=== PATIENT | male | born 1985 | race African-American/Black ===

== ENCOUNTER 2019-01-25 20:23 | Inpatient (IN) | payer OTHER ==
[~2019-01-25] VITALS: Ht 190.5 cm; Wt 95.7 kg
--- NOTE | 2019-01-25 20:57 | NUR ---
BIBS FROM HOME TO ER BED 9. AAOX4. NO RESP DISTRESS NOTED, BREATHING EVEN AND UNLABORED. AMBULATORY. C/O MIS TERNAL CHEST PAIN RADIATING TO THE BACK AND L ARM W/ NUMBNESS WITH THE PT REPORTS THAT STARTED 30MIN PROJECT MANAGER FINANCE. PAIN IS 9/10 W/ SENSATION OF HEAVY RIPPING PAIN. PT REPORTS TAKING 3 NITRO GLYCERIN WITHOUT ANY RELIEF. PT REPORTS EXTENSIVE HEART CONDITIONS. PT ALSO REPORTS VOMMITING BRIGHT RED BLOOD X 3 EPISODE 1HR PROJECT MANAGER FINANCE. PT IS PLACED ON MONITOR. MD AT BEDSIDE FOR EVAL. AWAITING ORDERS
[2019-01-25] MEDS ORDERED: diphenhydrAMINE HCL 50 MG/ML VIAL ONE ×3 (21:18→23:57)
[2019-01-25] MEDS ORDERED: methylPREDNISolone SOD SUCC 125 MG/2ML VIAL ONE (21:18)
[2019-01-25 21:19] LABS: BASOPHILS # (AUTO) 0.1 /CMM (0.0-0.2); BASOPHILS % (AUTO) 0.9 % (0.0-2.0); EOSINOPHILS % (AUTO) 0.3 % (0.0-6.0); HEMATOCRIT 35 % (39-51); HEMOGLOBIN 11.4 g/dL (13.5-17.5); LYMPHOCYTES # (AUTO) 1.3 /CMM (0.8-4.8); LYMPHOCYTES % (AUTO) 21.7 % (20.0-44.0); MEAN CORPUSCULAR HGB CONC 32 g/dl (31.0-36.0); MEAN CORPUSCULAR VOLUME 90 fL (80-96); MONOCYTES # (AUTO) 0.7 /CMM (0.1-1.30); MONOCYTES % (AUTO) 11.5 % (2.0-12.0); NEUTROPHILS # (AUTO) 3.9 /CMM (1.8-8.9); NEUTROPHILS % (AUTO) 65.6 % (43.0-81.0); PLATELET COUNT (AUTO) 185 /CMM (150-450); RED BLOOD CELL COUNT(AUTO) 3.92 MIL/uL (4.5-6.0)
[2019-01-25] MEDS ORDERED: FAMOTIDINE/PF INJ 20 MG/2 ML VIAL IV ONE (21:19)
[2019-01-25] MEDS ORDERED: HYDROMORPHONE 1 MG/1 ML DISP.SYRIN ONE ×2 (21:19→22:39)
[2019-01-25] MEDS ORDERED: ONDANSETRON HCL/PF 4 MG/2 ML VIAL ONE (21:19)
[2019-01-25 21:27] LABS: CALCIUM, SERUM 9.4 mg/dL (8.5-10.1); CARBON DIOXIDE 31 mmol/L (21-32); CHLORIDE 105 mmol/L (98-107); CREATININE 0.7 mg/dL (0.6-1.3); GLUCOSE 69 mg/dL (74-106); POTASSIUM 3.5 mmol/L (3.5-5.1); SODIUM SERUM 144 mmol/L (136-145); UREA NITROGEN, BLOOD 13 mg/dL (7-18)
[2019-01-25] MEDS ORDERED: diphenhydrAMINE HCL 50 MG/ML VIAL IV ONE ×2 (21:30→23:00)
[2019-01-25] MEDS ORDERED: ONDANSETRON HCL/PF 4 MG/2 ML VIAL IVP ONE (21:30)
[2019-01-25] MEDS ORDERED: FAMOTIDINE/PF INJ 40 MG in IV D5W 50 ML IV ONE (21:30)
[2019-01-25] MEDS ORDERED: methylPREDNISolone SOD SUCC 125 MG/2ML VIAL IV ONE (21:30)
[2019-01-25] MEDS ORDERED: HYDROMORPHONE INJ 2 MG/ML DISP.SYRIN IV ONE (21:30)
[2019-01-25 21:33] LABS: ALANINE AMINOTRANSFERASE 20 U/L (12-78); ALBUMIN 3.7 g/dL (3.4-5.0); ALKALINE PHOSPHATASE 74 U/L (46-116); ASPARTATE AMINOTRANSFERASE 9 U/L (15-37); BILIRUBIN,DIRECT 0.1 mg/dL (0.0-0.2); BILIRUBIN,TOTAL 0.2 mg/dL (0.2-1.0); LIPASE 111 U/L (73-393); TOTAL PROTEIN, SERUM 6.2 g/dL (6.4-8.2)
[2019-01-25 21:44] LABS: D-DIMER 0.2 mg/L(FEU (0.17-0.50)
--- NOTE | 2019-01-25 22:02 | NUR ---
RADIOLOGY AT BEDSIDE
[2019-01-25] MEDS ORDERED: IOHEXOL-350 100 ML VIAL IV ONE (22:06)
[2019-01-25] MEDS ORDERED: CT SWABBABLE VALVE TRANS SET 1 EA INFUS.SET MC ONE (22:06)
[2019-01-25] MEDS ORDERED: IV NS 0.9% 250 ML IV ONE (22:07)
--- NOTE | 2019-01-25 22:32 | NUR ---
PT BACK FROM CT. BENADRYL 50MG IV X 1 GIVEN PER MD ORDER FOR POST CT W/ CONTRAST TO PREVENT REACTION. PT STILL COMPLAINING OF CHEST PAIN 07/30. MD MADE AWARE AND RECEIVED VERBAL ORDER TO GIVE DILAUDID 1MG IV X 1 DOSE. NOTED AND CARRIED OUT
[2019-01-25] MEDS ORDERED: HYDROMORPHONE INJ 0.5 MG/0.5 ML SYRINGE IV ONE (23:00)
--- NOTE | 2019-01-25 23:37 | NUR ---
CALLED [facility] FOR PANEL ADMISSION.
--- NOTE | 2019-01-25 23:44 | NUR ---
CALLED RN SUP FOR TELE BED
--- NOTE | 2019-01-25 23:55 | NUR ---
KELLIE AT BEDSIDE W/ PT. [PT COMPLAINED OF GEN BODY ITCHING. MD MADE AWARE. VERBAL ORDERS FOR BENADRYL 50MG IV X 1. NOTED AND CARRIED OUT
--- NOTE | 2019-01-26 00:01 | NUR ---
PT ASSIGNED TO [facility] 107
[2019-01-26] MEDS ORDERED: MAGNESIUM HYDROXIDE 30 ML UDC PO PRN (00:30)
[2019-01-26] MEDS ORDERED: MAG HYDROX/AL HYDROX/SIMETH 30 ML UDC PO PRN (00:30)
[2019-01-26] MEDS ORDERED: Z GUARD REMEDY 2 OZ OINT TP PRN (00:30)
[2019-01-26] MEDS ORDERED: TRAMADOL HCL 50 MG TABLET PO PRN (00:30)
[2019-01-26] MEDS ORDERED: ONDANSETRON HCL/PF 4 MG/2 ML VIAL IVP PRN (00:30)
[2019-01-26] MEDS ORDERED: ACETAMINOPHEN 325 MG TABLET PO PRN (00:30)
--- NOTE | 2019-01-26 00:43 | NUR ---
ASSIGNED TO [facility] 315-2
--- NOTE | 2019-01-26 00:59 | NUR ---
REPORT GIVEN TO DIANA BRYSON FOR JOSHUA.
[2019-01-26 01:05] VITALS: BP 138/79
--- NOTE | 2019-01-26 01:10 | NUR ---
PT TRANSPORTED TO UNIT ON [facility] W/ EMT AND RN AT BEDSIDE USING ACLS PROTOCOL. NAD NOTED DURING TRANSPORT.
[2019-01-26] MEDS: MORPHINE SULFATE INJ 2 MG/ML DISP.SYRIN IV PRN ×5 (01:23→22:47)
--- NOTE | 2019-01-26 01:25 | NUR ---
RN OPENING NOTES RECEIVED REPORT FROM ROLLER PRINT TENDER SANJAY. Pt ARRIVED TO THE FLOOR VIA ER [facility], WAS ABLE TO AMBULATE FROM GURNEY TO BED WITH STEADY GAIT. NO S/S OF ACUTE DISTRESS OR SOB NOTED. Pt IS A/OX4, VERBAL, ABLE TO MAKE NEEDS KNOWN. Pt ALREADY HAD IV ACCESS SALES AND MARKETING ENGINEER HERE IN ER. IV LOCATED ON YUVAL MIDLINE. ON TELE MONITOR; TELE READING SR 70. SAFETY MEASURES IN PLACE. BED LOW, LOCKED, HOB ELEVATED, SIDE RAILS UP, CALL LIGHT AND BEDSIDE TABLE WITHIN REACH. WILL CONTINUE TO MONITOR Pt's CONDITION AND SAFETY THROUGHOUT THE NIGHT.
[2019-01-26 02:00] VITALS: BP 138/79
[2019-01-26] MEDS ORDERED: ATOR10TA PO (02:01)
[2019-01-26] MEDS ORDERED: SOTA80TA PO (02:01)
[2019-01-26] MEDS ORDERED: ECON15CR13 TP (02:04)
[2019-01-26] MEDS ORDERED: CARV6.25 PO (02:04)
[2019-01-26] MEDS ORDERED: DIGO125T PO (02:04)
[2019-01-26] MEDS ORDERED: FERR-68 PO (02:11)
[2019-01-26] MEDS ORDERED: DULO60CA45 PO (02:11)
[2019-01-26] MEDS ORDERED: FERR325T6 PO (02:11)
[2019-01-26] MEDS ORDERED: FLUT1DIS IH (02:28)
[2019-01-26] MEDS ORDERED: DOCU-141 PO (02:28)
[2019-01-26] MEDS ORDERED: TRAM50TA PO (02:28)
[2019-01-26] MEDS ORDERED: APIX5TAB PO (02:28)
[2019-01-26] MEDS ORDERED: DIPH50CA4 PO (02:28)
[2019-01-26] MEDS ORDERED: PANT40TA2 PO (02:28)
[2019-01-26] MEDS ORDERED: NITR0.4T48 SL (02:28)
[2019-01-26] MEDS ORDERED: ONDA4TAB5 PO (02:28)
[2019-01-26] MEDS ORDERED: ASPI-1169 PO (02:28)
[2019-01-26] MEDS ORDERED: OXYC-128 PO (02:28)
[2019-01-26] MEDS ORDERED: FOLI20CA PO (02:28)
[2019-01-26] MEDS ORDERED: MONT10TA22 PO (02:33)
[2019-01-26] MEDS ORDERED: TIOT18CA3 INH (02:33)
[2019-01-26] MEDS ORDERED: ISOS60TA4 PO (02:33)
[2019-01-26] MEDS ORDERED: GABA-534 PO (02:33)
[2019-01-26] MEDS ORDERED: ZOLP10TA2 PO (02:33)
[2019-01-26] MEDS: diphenhydrAMINE HCL 25 MG CAPSULE PO PRN ×2 (02:57→23:04)
[2019-01-26] MEDS ORDERED: ZOLPIDEM TARTRATE 10 MG TABLET PO PRN (03:00)
[2019-01-26] MEDS: PANTOPRAZOLE 40 MG VIAL IV SCH ×2 (03:00→17:02)
[2019-01-26] MEDS ORDERED: diphenhydrAMINE HCL 50 MG CAPSULE PO PRN (03:00)
--- NOTE | 2019-01-26 06:55 | NUR ---
RN CLOSING NOTES NO SIGNIFICANT CHANGES IN Pt's CONDITION. ALL NEEDS MET AND ATTENDED TO. SAFETY MEASURES IN PLACE. Pt RESTING IN BED WITH EQUAL CHEST RISE AND FALL. NO S/S OF ACUTE DISTRESS OR SOB NOTED DURING THE NIGHT. WILL ENDORSE TO DAYSHIFT RN FOR Pt's JOSHUA.
[2019-01-26 08:00] VITALS: BP 124/77
--- NOTE | 2019-01-26 08:00 | NUR ---
MS RN NOTES-- PT WAS SEEN AND EXAMINED BY DR. MORENO, D/C TELE.
[2019-01-26] MEDS: CARVEDILOL 6.25 MG TABLET PO SCH ×2 (08:25→17:03)
[2019-01-26] MEDS: FOLIC ACID 1 MG TABLET PO SCH (08:25)
[2019-01-26] MEDS: GABAPENTIN 300 MG CAPSULE PO SCH ×3 (08:25→17:03)
[2019-01-26] MEDS: DOCUSATE SODIUM 100 MG CAPSULE PO SCH ×2 (08:25→17:03)
[2019-01-26] MEDS: FERROUS SULFATE (325 MG) 325 MG/TAB TABLET PO SCH ×3 (08:25→17:03)
[2019-01-26] MEDS: DIGOXIN 0.125 MG TABLET PO SCH (08:25)
[2019-01-26] MEDS ORDERED: TIOTROPIUM BROMIDE 6 CAP/BOX CAP.W.DEV IH SCH (09:00)
[2019-01-26] MEDS ORDERED: ISOSORBIDE MONONITRATE 60 MG TAB.SR.24H PO SCH (09:00)
[2019-01-26] MEDS ORDERED: PANTOPRAZOLE 40 MG TABLET.DR PO SCH (09:00)
[2019-01-26] MEDS: ISOSORBIDE MONONITRATE (30MG) 30 MG TAB.SR.24H PO SCH (10:57)
[2019-01-26 11:24] LABS: BASOPHILS % (AUTO) 0.4 % (0.0-2.0); EOSINOPHILS % (AUTO) 0.1 % (0.0-6.0); HEMATOCRIT 34 % (39-51); LYMPHOCYTES # (AUTO) 0.2 /CMM (0.8-4.8); LYMPHOCYTES % (AUTO) 5.4 % (20.0-44.0); MEAN CORPUSCULAR HGB CONC 33 g/dl (31.0-36.0); MEAN CORPUSCULAR VOLUME 89 fL (80-96); MONOCYTES # (AUTO) 0.1 /CMM (0.1-1.30); MONOCYTES % (AUTO) 2.4 % (2.0-12.0); NEUTROPHILS # (AUTO) 3.8 /CMM (1.8-8.9); NEUTROPHILS % (AUTO) 91.7 % (43.0-81.0); PLATELET COUNT (AUTO) 153 /CMM (150-450); RED BLOOD CELL COUNT(AUTO) 3.81 MIL/uL (4.5-6.0); WHITE BLOOD COUNT (AUTO) 4.1 K/uL (4.3-11.0)
[2019-01-26 11:27] LABS: CREATININE 0.7 mg/dL (0.6-1.3); POTASSIUM 4.5 mmol/L (3.5-5.1)
[2019-01-26] MEDS: SOTALOL HCL 80 MG TABLET PO SCH ×2 (12:16→17:00)
[2019-01-26] MEDS ORDERED: diphenhydrAMINE HCL 50 MG/ML VIAL IV ONE ×4 (13:30→18:00)
[2019-01-26] MEDS ORDERED: methylPREDNISolone SOD SUCC 125 MG/2ML VIAL IV ONE ×2 (13:30→17:30)
[2019-01-26] MEDS ORDERED: FAMOTIDINE/PF INJ 20 MG/2 ML VIAL IV ONE ×2 (13:30→17:30)
--- NOTE | 2019-01-26 13:30 | NUR ---
MS RN NOTES-- PT WAS SEEN AND EXAMINED BY ILYA Richter/ ORDERS CARRIED OUT.
--- NOTE | 2019-01-26 14:00 | NUR ---
MS RN NOTES-- NOTIFIED RADIOLOGY RE: [facility] FOR TIME D/T PT NEEDING TO BE PREMEDICATED. PER GAVINO IN RADIOLOGY, SHE WILL CALL FOR TIME.
[2019-01-26 15:58] VITALS: BP 111/66
[2019-01-26] MEDS: SUCRALFATE 1 G TABLET PO SCH ×2 (17:03→22:37)
--- NOTE | 2019-01-26 17:41 | NUR ---
MS RN NOTES-- UNABLE TO PULL OUT 1330 MEDICATIONS FROM [employer] FOR PRE-MED FOR [facility]. CALLED PHARMACY, SPOKE W/ MILTON, SHE WILL RESET THE MEDICATIONS TO 1730. CLEARED 1330 MEDS D/T 1730 ADMINISTRATION FOR BENADRYL, SOLU-MEDROL AND PEPCID. PER RADIOLOGY, THEY WILL P/U PT "SOON."
--- NOTE | 2019-01-26 17:55 | NUR ---
MS RN NOTES-- PER PT REQUEST, TO HAVE BENADRYL IV X1 AFTER [facility]. NOTIFIED ILYA BRIONES AND RECEIVED VERBAL ORDERS FOR BENADRYL 50MG IV X1 AFTER [facility]. ORDERS READ BACK AND VERIFIED.
--- NOTE | 2019-01-26 17:57 | NUR ---
MS ORTIZ NOTES-- PT P/U BY RADIOLOGY VIA W/C FOR [facility] IN STABLE CONDITION.
[2019-01-26] MEDS ORDERED: IV NS 0.9% 250 ML IV ONE (17:59)
[2019-01-26] MEDS ORDERED: CT SWABBABLE VALVE TRANS SET 1 EA INFUS.SET MC ONE (17:59)
[2019-01-26] MEDS ORDERED: IOHEXOL-350 100 ML VIAL IV ONE (17:59)
--- NOTE | 2019-01-26 18:40 | NUR ---
MS ORTIZ NOTES-- PT CAME BACK FROM RADIOLOGY FOR [facility] IN STABLE CONDITION VIA W/C.
--- NOTE | 2019-01-26 19:06 | NUR ---
MS RN END OF SUMMARY NOTES ALL DUE MEDS GIVEN, NEEDS MET AND RENDERED. PT REMAINS A/OX4, AFEBRILE. RESPIRATIONS ARE EVEN AND UNLABORED, NOT IN ANY ACUTE DISTRESS NOTED. PT DENIES ANY SOB, N/V. C/O GENERALIZED PAIN AND MEDICATED WITH MORPHINE 2MG. NOTED TO BE EFFECTIVE. PT IS AMBULATORY, CONTINENT W/ BOWEL AND BLADDER. PICC LINE TO YUVAL INTACT, NO INFILTRATION NOTED. DRESSING KEPT CLEAN AND DRY. RESUMED CLEAR LIQUID DIET. NO BM TODAY FOR STOOL OB. PT MADE AWARE STOOL NEEDS TO BE COLLECTED. SAFETY MEASURES ARE IN PLACE. CALL LIGHT IS LEFT WITHIN REACH. WILL ENDORSE TO NEXT SHIFT FOR CONTINUITY OF CARE.
--- NOTE | 2019-01-26 19:15 | NUR ---
MS/RN OPENING NOTES: RECEIVED PATIENT IN BED, AWAKE AND WATCHING ON IPAD. A/OX4, VERBALLY RESPONSIVE AND ABLE TO MAKE NEEDS KNOWN. PATIENT IS ABLE TO AMBULATE TO THE BATHROOM WITH STEADY GAIT. NO S/S OF ACUTE DISTRESS OR SOB NOTED. IV ACCESS LOCATED ON THE YUVAL PICCLINE. ON CLEAR LIQUID DIET. SAFETY MEASURES ARE IN PLACE. BED IS IN LOW, LOCKED POSITION WITH HOB ELEVATED, SIDE RAILS UP X2. CALL LIGHT AND BEDSIDE TABLE WITHIN EASY REACH. WILL CONTINUE TO MONITOR PATIENT ACCORDINGLY.
[2019-01-26] MEDS: IPRATROPIUM NEB FS 0.5 MG/2.5 ML AMPUL.NEB NEB SCH (19:30)
[2019-01-26 20:00] VITALS: BP 115/70
[2019-01-26 20:37] LABS: HEMOGLOBIN 11.4 g/dL (13.5-17.5)
[2019-01-26] MEDS: MONTELUKAST SODIUM (10MG) 10 MG TABLET PO SCH (22:37)
--- NOTE | 2019-01-26 22:47 | NUR ---
MS/ RN NOTES: PATIENT COMPLAINED OF GENERALIZED PAIN WITH PAIN SCALE OF 8. MORPHINE 2 MG IV Q4HR WAS GIVEN ORDERED. PATIENT IS IN A STABLE CONDITION, VITAL SIGNS WNL. WILL CONTINUE TO MONITOR PATIENT AND REASSESS PAIN LEVEL ACCORDINGLY.
--- NOTE | 2019-01-26 23:04 | NUR ---
MS/ RN NOTES: PATIENT COMPLAINED OF ITCHING AND DISCOMFORT. VS WNL, BENADRYL 25 MG PO Q6HR WAS GIVEN ORDERED. PATIENT IS STABLE. WILL CONTINUE TO MONITOR PATIENT ACCORDINGLY.
[2019-01-27 00:58] LABS: HEMATOCRIT 34 % (39-51); HEMOGLOBIN 11.2 g/dL (13.5-17.5); LYMPHOCYTES # (AUTO) 0.3 /CMM (0.8-4.8); LYMPHOCYTES % (AUTO) 4.6 % (20.0-44.0); MEAN CORPUSCULAR HGB CONC 33 g/dl (31.0-36.0); MEAN CORPUSCULAR VOLUME 87 fL (80-96); MONOCYTES # (AUTO) 0.2 /CMM (0.1-1.30); MONOCYTES % (AUTO) 2.8 % (2.0-12.0); NEUTROPHILS # (AUTO) 5.5 /CMM (1.8-8.9); NEUTROPHILS % (AUTO) 92.6 % (43.0-81.0); PLATELET COUNT (AUTO) 179 /CMM (150-450); RED BLOOD CELL COUNT(AUTO) 3.91 MIL/uL (4.5-6.0)
[2019-01-27] MEDS: IPRATROPIUM NEB FS 0.5 MG/2.5 ML AMPUL.NEB NEB SCH ×4 (01:30→19:29)
--- NOTE | 2019-01-27 01:30 | NUR ---
RT RT UNAWARE OF NEW RESPIRATORY ORDERS. PT WAS ASSESSED. NO SOB AND CLEAR BREATH SOUNDS.
[2019-01-27] MEDS: MORPHINE SULFATE INJ 2 MG/ML DISP.SYRIN IV PRN ×5 (02:58→22:49)
--- NOTE | 2019-01-27 02:58 | NUR ---
MS/ RN NOTES: PATIENT IS COMPLAINING OF GENERALIZED PAIN RADIATING TO THE BACK WITH PAIN SCALE OF 8. MORPHINE 2 MG IV Q4HR WAS GIVEN ORDERED. PATIENT IS IN A STABLE CONDITION, VITAL SIGNS WNL. WILL CONTINUE TO MONITOR PATIENT AND REASSESS PAIN LEVEL ACCORDINGLY.
--- NOTE | 2019-01-27 06:42 | NUR ---
MS/ RN CLOSING NOTES: NO SIGNIFICANT CHANGES IN PATIENT'S CONDITION. ALL NEEDS MET AND PROVIDED. KEPT PATIENT WARM AND DRY DURING THE NIGHT. ALL DUE MEDICATIONS GIVEN ORDERED. SAFETY MEASURES KEPT PLACE. Pt RESTING IN BED WITH EQUAL CHEST RISE AND FALL. NO S/S OF ACUTE DISTRESS OR SOB NOTED DURING THE NIGHT. WILL ENDORSE TO DAYSHIFT RN FOR JOSHUA.
[2019-01-27 08:00] VITALS: BP 113/72
--- NOTE | 2019-01-27 08:00 | NUR ---
MS RN OPENING NOTES Received Patient awake and resting in bed. A/O x 4. VS stable with no acute distress. Breathing even and unlabored on room air with no respiratory distress. No complaints of pain nor discomfort at this time. YUVAL PICC line clean, intact, patent and flushing well. Safety precautions in place. Bed locked and set to lowest position with side rails x 2 up. All needs rendered at this time. Call light within reach. Will continue to monitor.
[2019-01-27 08:14] LABS: BASOPHILS % (AUTO) 0.1 % (0.0-2.0); HEMATOCRIT 34 % (39-51); HEMOGLOBIN 11.2 g/dL (13.5-17.5); LYMPHOCYTES # (AUTO) 0.4 /CMM (0.8-4.8); LYMPHOCYTES % (AUTO) 7.9 % (20.0-44.0); MEAN CORPUSCULAR HGB CONC 33 g/dl (31.0-36.0); MEAN CORPUSCULAR VOLUME 88 fL (80-96); MONOCYTES # (AUTO) 0.2 /CMM (0.1-1.30); MONOCYTES % (AUTO) 4.4 % (2.0-12.0); NEUTROPHILS # (AUTO) 4.7 /CMM (1.8-8.9); NEUTROPHILS % (AUTO) 87.6 % (43.0-81.0); PLATELET COUNT (AUTO) 171 /CMM (150-450); WHITE BLOOD COUNT (AUTO) 5.4 K/uL (4.3-11.0)
[2019-01-27 08:27] LABS: CALCIUM, SERUM 8.7 mg/dL (8.5-10.1); CREATININE 0.6 mg/dL (0.6-1.3); MAGNESIUM 1.8 mg/dL (1.8-2.4); PHOSPHORUS 3.9 mg/dL (2.5-4.9)
[2019-01-27 08:36] LABS: THYROID STIMULATING HORMONE 0.069 uIU/mL (0.358-3.74)
[2019-01-27] MEDS ORDERED: ISOSORBIDE MONONITRATE (30MG) 30 MG TAB.SR.24H PO SCH (09:00)
[2019-01-27 09:08] LABS: IRON, SERUM 32 ug/dl (50-175); TOTAL IRON BINDING CAPACITY 291 ug/dl (250-450)
[2019-01-27 09:21] LABS: FERRITIN 121 ng/mL (8-388)
[2019-01-27] MEDS: PANTOPRAZOLE 40 MG VIAL IV SCH ×2 (10:17→18:28)
[2019-01-27] MEDS: SOTALOL HCL 80 MG TABLET PO SCH ×2 (10:22→18:29)
[2019-01-27] MEDS: SUCRALFATE 1 G TABLET PO SCH ×4 (10:22→21:17)
[2019-01-27] MEDS: DOCUSATE SODIUM 100 MG CAPSULE PO SCH ×2 (10:22→18:29)
[2019-01-27] MEDS: CARVEDILOL 6.25 MG TABLET PO SCH ×2 (10:23→18:29)
[2019-01-27] MEDS: FOLIC ACID 1 MG TABLET PO SCH (10:23)
[2019-01-27] MEDS: ISOSORBIDE MONONITRATE (30MG) 30 MG TAB.SR.24H PO SCH (10:23)
[2019-01-27] MEDS: FERROUS SULFATE (325 MG) 325 MG/TAB TABLET PO SCH ×3 (10:23→18:29)
[2019-01-27] MEDS: DIGOXIN 0.125 MG TABLET PO SCH (10:23)
[2019-01-27] MEDS: GABAPENTIN 300 MG CAPSULE PO SCH ×3 (10:24→18:30)
[2019-01-27] MEDS ORDERED: diphenhydrAMINE HCL 50 MG/ML VIAL IV ONE (14:00)
[2019-01-27 16:00] VITALS: BP 116/66
[2019-01-27 18:27] LABS: HEMOGLOBIN 11.6 g/dL (13.5-17.5)
--- NOTE | 2019-01-27 18:47 | NUR ---
MS RN CLOSING NOTES Patient awake and resting in bed. A/O x 4. VS stable with no acute distress. Breathing even and unlabored on room air with no respiratory distress. Patient stated back pain 10/30. Administered Morphine 2mg at 1825. Will endorse to oncoming shift. YUVAL PICC line clean, intact, patent and flushing well. Safety precautions in place. Bed locked and set to lowest position with side rails x 2 up. All needs rendered at this time. Call light within reach. Will endorse to oncoming shift.
[2019-01-27 20:38] VITALS: BP 106/56
[2019-01-27] MEDS: MONTELUKAST SODIUM (10MG) 10 MG TABLET PO SCH (21:17)
[2019-01-28] MEDS: IPRATROPIUM NEB FS 0.5 MG/2.5 ML AMPUL.NEB NEB SCH ×3 (01:30→13:29)
[2019-01-28] MEDS: MORPHINE SULFATE INJ 2 MG/ML DISP.SYRIN IV PRN ×4 (03:15→17:12)
--- NOTE | 2019-01-28 07:02 | NUR ---
RN CLOSING NOTES PATIENT ASLEEP, AROUSES EASILY, NO ACUTE DISTRESS NOTED. NO SIGNFICANT CHANGE OF CONDITION DURING THE SHIFT. REPOSITIONED FOR COMFORT. ALL NEEDS ATTENDED AND PROVIDED. ALL DUE MEDICATIONS GIVEN ORDERED. SAFETY PRECAUTIONS IN PLACE. BED IN LOWEST LOCKED POSITION. SIDERAILS UPX2, CALL LIGHT WITHIN EASY REACH.
[2019-01-28 08:00] VITALS: BP 104/55
--- NOTE | 2019-01-28 08:00 | NUR ---
MS RN OPENING NOTES Received Patient asleep and resting in bed. VS stable with no acute distress. Breathing even and unlabored on room air with no respiratory distress. No signs and symptoms of pain at this time. YUVAL PICC line clean, intact, patent and flushing well. Safety precautions in place. Bed locked and set to lowest position with side rails x 2 up. All needs rendered at this time. Call light within reach. Will continue to monitor.
[2019-01-28] MEDS: ISOSORBIDE MONONITRATE (30MG) 30 MG TAB.SR.24H PO SCH (09:00)
[2019-01-28] MEDS: CARVEDILOL 6.25 MG TABLET PO SCH ×2 (09:00→17:00)
[2019-01-28] MEDS: SUCRALFATE 1 G TABLET PO SCH ×3 (09:06→17:23)
[2019-01-28] MEDS: PANTOPRAZOLE 40 MG VIAL IV SCH ×2 (09:06→17:14)
[2019-01-28] MEDS: DIGOXIN 0.125 MG TABLET PO SCH (09:07)
[2019-01-28] MEDS: SOTALOL HCL 80 MG TABLET PO SCH ×2 (09:07→17:22)
[2019-01-28] MEDS: DOCUSATE SODIUM 100 MG CAPSULE PO SCH ×2 (09:07→17:22)
[2019-01-28] MEDS: FERROUS SULFATE (325 MG) 325 MG/TAB TABLET PO SCH ×3 (09:07→17:22)
[2019-01-28] MEDS: GABAPENTIN 300 MG CAPSULE PO SCH ×3 (09:08→17:22)
[2019-01-28] MEDS: FOLIC ACID 1 MG TABLET PO SCH (09:08)
[2019-01-28 10:13] LABS: BASOPHILS % (AUTO) 0.4 % (0.0-2.0); EOSINOPHILS % (AUTO) 0.5 % (0.0-6.0); HEMATOCRIT 38 % (39-51); HEMOGLOBIN 12.4 g/dL (13.5-17.5); LYMPHOCYTES # (AUTO) 1.3 /CMM (0.8-4.8); LYMPHOCYTES % (AUTO) 25.7 % (20.0-44.0); MEAN CORPUSCULAR HGB CONC 33 g/dl (31.0-36.0); MEAN CORPUSCULAR VOLUME 88 fL (80-96); MONOCYTES # (AUTO) 0.4 /CMM (0.1-1.30); MONOCYTES % (AUTO) 8.6 % (2.0-12.0); NEUTROPHILS # (AUTO) 3.4 /CMM (1.8-8.9); NEUTROPHILS % (AUTO) 64.8 % (43.0-81.0); PLATELET COUNT (AUTO) 168 /CMM (150-450); RED BLOOD CELL COUNT(AUTO) 4.27 MIL/uL (4.5-6.0); WHITE BLOOD COUNT (AUTO) 5.2 K/uL (4.3-11.0)
[2019-01-28 10:22] LABS: CALCIUM, SERUM 8.8 mg/dL (8.5-10.1); CREATININE 0.6 mg/dL (0.6-1.3); POTASSIUM 3.3 mmol/L (3.5-5.1)
[2019-01-28] MEDS ORDERED: SOD FERRIC GLUC 125 MG in IV NS 0.9% 100 ML IV SCH (14:00)
[2019-01-28 16:00] VITALS: BP 102/50
[2019-01-28 17:22] VITALS: BP 102/50
--- NOTE | 2019-01-28 19:04 | NUR ---
MS VP CORPORATE PARTNERSHIPS NOTES Patient discharged to home at this time. Patient in stable condition. VS stable with no acute distress. Breathing even and unlabored on room air with no respiratory distress. Denies pain. YUVAL Midline clean, intact, patent and flushing well. Patient admitted with Midline. Per Patient, primary MD, Marcelino Miles to schedule a procedure and placed YUVAL Midline. Per Ginger SOLIS, Patient to be discharged with Midline. Medication reconciliation and discharge orders reviewed and explained to Patient. Patient verbalized understanding. All belongings with Patient. Patient will follow up with PCP. Escorted Patient to the lobby for safety. Patient picked up by Zhane.
== END 2019-01-28 18:58 | disposition home or self-care (01) | DRG 241 ==
LOC: ER 20:30 → TELE1 01-26 00:03 → TELE 01-26 00:43 → MED 01-26 11:13
PROVIDERS: ADMIT Registered Nurse; ATTEND Nurse Practitioner Acute Care
DX: K25.4 Chronic or unspecified gastric ulcer with hemorrhage (principal); D68.59 Other primary thrombophilia; K55.21 Angiodysplasia of colon with hemorrhage; I27.20 Pulmonary hypertension, unspecified; I48.91 Unspecified atrial fibrillation; Q87.40 Marfan syndrome, unspecified; F41.9 Anxiety disorder, unspecified; D62 Acute posthemorrhagic anemia; I25.2 Old myocardial infarction; D63.1 Anemia in chronic kidney disease; D50.9 Iron deficiency anemia, unspecified; F32.9 Major depressive disorder, single episode, unspecified; G89.4 Chronic pain syndrome; J45.909 Unspecified asthma, uncomplicated; N18.9 Chronic kidney disease, unspecified; Z86.73 Personal history of transient ischemic attack (TIA), and cerebral infarction without residual deficits; Z86.718 Personal history of other venous thrombosis and embolism; Z86.711 Personal history of pulmonary embolism; Z87.11 Personal history of peptic ulcer disease; Z95.810 Presence of automatic (implantable) cardiac defibrillator; I12.9 Hypertensive chronic kidney disease with stage 1 through stage 4 chronic kidney disease, or unspecified chronic kidney disease; Z76.5 Malingerer [conscious simulation]; Z79.01 Long term (current) use of anticoagulants; Z79.82 Long term (current) use of aspirin; Z87.74 Personal history of (corrected) congenital malformations of heart and circulatory system
CPT/HCPCS: 36415; 71045-TC; 75574; 80048-TC; 80061-TC; 80076-TC; 82728-TC; 83540-TC; 83690-TC; 83735-TC; 84100-TC; 84443-TC; 84484-TC; 85025-TC; 85027-TC; 85378-TC; 85730-TC; 87081-TC; 93307-TC; C9113; G0378; J1170; J1200; J2270; J2405; J2916; J2930; J3490; J7030; J7050; J7060; Q0163; Q9967

== ENCOUNTER 2019-06-07 15:20 | Inpatient (IN) | payer OTHER ==
[~2019-06-07] VITALS: Ht 190.5 cm; Wt 101.2 kg
[~2019-06-07 15:20] MED LIST: APIX5TAB PO; ASPI-1169 PO; ATOR10TA PO; CARV6.25 PO; DIGO125T PO; DIPH50CA4 PO; DOCU-141 PO; DULO60CA45 PO; ECON15CR2 TP; FERR325T6 PO; FLUT1DIS IH; FOLI20CA PO; GABA-534 PO; ISOS60TA4 PO; MONT10TA22 PO; NITR0.4T48 SL; ONDA4TAB5 SL; OXYC-128 PO; PANT40TA2 PO; SOTA80TA PO; TIOT18CA3 INH; TRAM50TA PO; ZOLP10TA2 PO
--- NOTE | 2019-06-07 15:35 | NUR ---
LEFT SIDED WEAKNESS AND CHEST PAIN X 20 MINUTES. HX CVA. -FACIAL DROOP. -APHASIA. NO ACUTE DISTRESS NOTED. RR EVEN AND UNLABORED ON RA. PLACED ON MONITOR, SEEN BY DR ELLISON, AWAITING ORDERS.
--- NOTE | 2019-06-07 15:45 | NUR ---
TELENEUROLOGY VISIT WITH PT
[2019-06-07] MEDS ORDERED: IOHEXOL-350 100 ML VIAL IV ONE ×2 (15:46→15:50)
[2019-06-07] MEDS ORDERED: CT SWABBABLE VALVE TRANS SET 1 EA INFUS.SET MC ONE (15:46)
[2019-06-07] MEDS ORDERED: IV NS 0.9% 250 ML IV ONE (15:47)
--- NOTE | 2019-06-07 15:50 | NUR ---
PT TAKEN TO CT VIA [facility]
[2019-06-07] MEDS ORDERED: methylPREDNISolone SOD SUCC 125 MG/2ML VIAL ONE (15:53)
[2019-06-07] MEDS ORDERED: diphenhydrAMINE HCL 50 MG/ML VIAL ONE (15:53)
[2019-06-07] MEDS ORDERED: FAMOTIDINE/PF INJ 20 MG/2 ML VIAL IV ONE ×2 (15:55→16:00)
[2019-06-07 15:56] LABS: BASOPHILS # (AUTO) 0.1 /CMM (0.0-0.2); EOSINOPHILS % (AUTO) 0.6 % (0.0-6.0); HEMATOCRIT 37 % (39-51); HEMOGLOBIN 12.1 g/dL (13.5-17.5); LYMPHOCYTES # (AUTO) 0.8 /CMM (0.8-4.8); LYMPHOCYTES % (AUTO) 12.8 % (20.0-44.0); MEAN CORPUSCULAR HGB CONC 33 g/dl (31.0-36.0); MEAN CORPUSCULAR VOLUME 91 fL (80-96); MONOCYTES # (AUTO) 0.4 /CMM (0.1-1.30); NEUTROPHILS # (AUTO) 4.8 /CMM (1.8-8.9); NEUTROPHILS % (AUTO) 78.6 % (43.0-81.0); PLATELET COUNT (AUTO) 161 /CMM (150-450); WHITE BLOOD COUNT (AUTO) 6.1 K/uL (4.3-11.0)
[2019-06-07] MEDS ORDERED: diphenhydrAMINE HCL 50 MG/ML VIAL IV ONE (16:00)
[2019-06-07] MEDS ORDERED: ONDANSETRON HCL/PF 4 MG/2 ML VIAL IVP ONE (16:00)
[2019-06-07] MEDS ORDERED: methylPREDNISolone SOD SUCC 125 MG/2ML VIAL IV ONE (16:00)
[2019-06-07 16:03] LABS: CALCIUM, SERUM 8.7 mg/dL (8.5-10.1); CARBON DIOXIDE 32 mmol/L (21-32); CHLORIDE 105 mmol/L (98-107); CREATININE 0.7 mg/dL (0.6-1.3); GLUCOSE 90 mg/dL (74-106); SODIUM SERUM 142 mmol/L (136-145); UREA NITROGEN, BLOOD 8 mg/dL (7-18)
[2019-06-07 16:29] LABS: CHOLESTEROL 161 mg/dL (<200); HDL CHOLESTEROL 75 mg/dL (40-60); LDL 72 mg/dL (0-99); TRIGLYCERIDES 74 mg/dL (30-150)
[2019-06-07] MEDS ORDERED: FOLI0.4T2 PO (16:59)
[2019-06-07] MEDS ORDERED: ASPIRIN 325 MG TABLET PO STA (18:37)
[2019-06-07] MEDS ORDERED: ACETAMINOPHEN ES 500 MG TABLET PO PRN (19:00)
[2019-06-07] MEDS ORDERED: ASPIRIN 325 MG TABLET ONE (19:12)
[2019-06-07] MEDS ORDERED: ACETAMINOPHEN 325 MG TABLET ONE (19:12)
--- NOTE | 2019-06-07 20:23 | NUR ---
PT ASKING FOR PAIN MEDS. MD NOTIFIED.
[2019-06-07] MEDS ORDERED: HYDROCODONE/APAP 5/325MG 1 EACH TABLET PO STA (20:25)
[2019-06-07] MEDS ORDERED: HYDROCODONE/APAP 5/325MG 1 EACH TABLET ONE (20:29)
[2019-06-07] MEDS ORDERED: HYDROMORPHONE 1 MG/1 ML DISP.SYRIN IV STA (20:59)
[2019-06-07] MEDS ORDERED: HYDROMORPHONE 1 MG/1 ML DISP.SYRIN ONE (21:14)
--- NOTE | 2019-06-07 21:23 | NUR ---
REPORT GIVEN TO DIANA MARR FOR 315-2, NIRANJAN VELAZQUEZ ADMITTING.
[2019-06-07 21:30] VITALS: BP 146/58
--- NOTE | 2019-06-07 21:45 | NUR ---
[facility]
--- NOTE | 2019-06-07 22:00 | NUR ---
DESULPHURING OPERATOR NOTE: RECEIVED PATIENT FROM ER, NO ACUTE DISTRESS NOTED. BREATHING EVEN AND UNLABORED, NO SOB NOTED. IV TO RIGHT WRIST IN PLACE. ORIENTED PATIENT TO ROOM AND USE OF CALL LIGHT. AWAITING FOR ADMIT ORDERS. BED LOCKED AND IN LOWEST POSITION, CALL LIGHT IN REACH. WILL CONTINUE TO MONITOR.
[2019-06-08 00:01] VITALS: BP 112/76
[2019-06-08] MEDS ORDERED: diphenhydrAMINE HCL 25 MG CAPSULE PO PRN (01:30)
[2019-06-08] MEDS ORDERED: ACETAMINOPHEN 325 MG TABLET PO PRN (01:30)
[2019-06-08] MEDS ORDERED: ZOLPIDEM TARTRATE 10 MG TABLET PO PRN (01:30)
[2019-06-08] MEDS ORDERED: NITROGLYCERIN 0.4 MG/TAB BOTTLE SL PRN (01:30)
[2019-06-08] MEDS ORDERED: ONDANSETRON HCL/PF 4 MG/2 ML VIAL IVP PRN (01:30)
[2019-06-08] MEDS ORDERED: Z GUARD REMEDY 2 OZ OINT TP PRN (01:30)
[2019-06-08] MEDS ORDERED: HEPARIN SODIUM, PORCINE 5000 UNITS/1 ML VIAL IV ONE (03:00)
--- NOTE | 2019-06-08 03:00 | NUR ---
DIRECTOR OF DISTRICT OFFICE NOTE: PATIENT WITH ORDERS FOR HEPARIN DRIP FOR NO ACUTE CORONARY SYNDROMES. COMPLETED WEIGHT-BASED HEPARIN DOSING ORDER FOR NOT ACUTE CORONARY SYNDROMES AND FAXED TO [facility]. CLARIFIED BOLUS DOSE WITH MD, SINCE PATIENT HAD HX OF GIB, PATIENT TO ONLY RECEIVE HEPARIN 500OUNITS IV BOLUS. ORDER NOTED AND CARRIED OUT. FAXED ORDER FOR HEPARIN DRIP TO NURSING TANK TRUCK MILK RECEIVER. AWAITING BAG OF HEPARIN DRIP FROM TANK TRUCK MILK RECEIVER AND HEPARIN BOLUS TO BE VERIFIED FROM PHARMACY. WILL CONTINUE TO MONITOR.
[2019-06-08] MEDS ORDERED: HEPARIN INFUSION/D5W 500 ML IV ONE (03:36)
[2019-06-08] MEDS: HEPARIN INFUSION/D5W 500 ML IV PRN ×2 (03:56→20:13)
--- NOTE | 2019-06-08 04:05 | NUR ---
POOL CLEANER NOTE: PATIENT STARTED ON HEPARIN DRIP AT 1800 UNITS/KG (36ML/HR) PER PROTOCOL. HEPARIN BOLUS 5000 UNITS IV GIVEN PER MD ORDER. NEXT PTT ORDER TO TAKEN AT 1000. WILL CONTINUE TO MONITOR.
[2019-06-08] MEDS: diphenhydrAMINE HCL 50 MG/ML VIAL IV PRN ×2 (04:08→20:25)
[2019-06-08] MEDS ORDERED: oxyCODONE/APAP (5/325 MG) 1 UDTAB TABLET PO SCH (05:00)
--- NOTE | 2019-06-08 06:30 | NUR ---
BUSINESS CHANGE MANAGER NOTE: PATIENT RESTING IN BED, NO ACUTE DISTRESS NOTED. BREATHING EVEN AND UNLABORED, NO SOB NOTED. TELE READING SR 70. IV TO RIGHT WRIST IN PLACE, INFUSING HEPARIN 1800UNIT/KG IV. NO ACTIVE BLEEDING NOTED. BED LOCKED AND IN LOWEST POSITION, CALL LIGHT IN REACH. WILL ENDORSE TO DAY NURSE TO CONTINUE WITH PLAN OF CARE.
[2019-06-08 06:32] VITALS: BP 122/69
[2019-06-08] MEDS ORDERED: FLUTICASONE/SALMETEROL 1 DISK IH SCH (07:30)
[2019-06-08] MEDS ORDERED: IPRATROPIUM NEB FS 0.5 MG/2.5 ML AMPUL.NEB NEB SCH (07:35)
--- NOTE | 2019-06-08 07:47 | NUR ---
EVENT ATTENDANT OPENING NOTES RECEIVED PATIENT IN BED, ASLEEP. PATIENT ON ROOM AIR, BREATHING EVEN WITH NO SOB PRESENT AT THIS TIME. NO SIGNS OF PAIN SUCH FACIAL GRIMACING OR MOANING. TELE READING SR 70. IV TO RIGHT WRIST IN PLACE, INFUSING HEPARIN 1800UNIT/KG IV. NO ACTIVE BLEEDING NOTED. SAFETY PRECAUTIONS IN PLACE; BED IN LOW POSITION AND LOCKED, RAILS UP X2, CALL LIGHT WITHIN REACH. WILL CONTINUE TO MONITOR PATIENT.
[2019-06-08 08:00] VITALS: BP 115/67
[2019-06-08] MEDS: SOTALOL HCL 80 MG TABLET PO SCH ×2 (09:00→17:17)
[2019-06-08] MEDS ORDERED: DIGOXIN 0.125 MG TABLET PO SCH (09:00)
[2019-06-08] MEDS ORDERED: ISOSORBIDE MONONITRATE 60 MG TAB.SR.24H PO SCH (09:00)
[2019-06-08] MEDS ORDERED: ECONAZOLE NITRATE 15 GM TUBE TP SCH ×2 (09:00→17:00)
[2019-06-08 09:04] LABS: HEMATOCRIT 37 % (39-51); HEMOGLOBIN 12.2 g/dL (13.5-17.5); LYMPHOCYTES # (AUTO) 0.5 /CMM (0.8-4.8); LYMPHOCYTES % (AUTO) 6.1 % (20.0-44.0); MEAN CORPUSCULAR HGB CONC 34 g/dl (31.0-36.0); MEAN CORPUSCULAR VOLUME 89 fL (80-96); MONOCYTES # (AUTO) 0.1 /CMM (0.1-1.30); MONOCYTES % (AUTO) 1.2 % (2.0-12.0); NEUTROPHILS # (AUTO) 7.8 /CMM (1.8-8.9); NEUTROPHILS % (AUTO) 92.7 % (43.0-81.0); PLATELET COUNT (AUTO) 165 /CMM (150-450); RED BLOOD CELL COUNT(AUTO) 4.11 MIL/uL (4.5-6.0); WHITE BLOOD COUNT (AUTO) 8.4 K/uL (4.3-11.0)
[2019-06-08] MEDS: ASPIRIN 81 MG TAB.CHEW PO SCH (09:23)
[2019-06-08] MEDS: PANTOPRAZOLE 40 MG TABLET.DR PO SCH ×2 (09:24→17:16)
[2019-06-08] MEDS: DOCUSATE SODIUM 100 MG CAPSULE PO SCH ×2 (09:24→17:16)
[2019-06-08] MEDS: FERROUS SULFATE (325 MG) 325 MG/TAB TABLET PO SCH ×2 (09:24→17:16)
[2019-06-08] MEDS: DULOXETINE HCL 30 MG CAPSULE.DR PO SCH (09:24)
[2019-06-08] MEDS: FOLIC ACID 1 MG TABLET PO SCH (09:24)
[2019-06-08] MEDS: CARVEDILOL 6.25 MG TABLET PO SCH ×2 (09:25→17:17)
[2019-06-08] MEDS: GABAPENTIN 300 MG CAPSULE PO SCH ×3 (09:25→17:16)
[2019-06-08] MEDS: DIGOXIN 0.125 MG TABLET PO SCH (09:26)
[2019-06-08] MEDS: FLUTICASONE/VILANTEROL 1 EACH BLST.W.DEV IH SCH (09:29)
[2019-06-08 09:30] LABS: CALCIUM, SERUM 9.2 mg/dL (8.5-10.1); CREATININE 0.5 mg/dL (0.6-1.3); MAGNESIUM 1.9 mg/dL (1.8-2.4); PHOSPHORUS 2.3 mg/dL (2.5-4.9); POTASSIUM 4.1 mmol/L (3.5-5.1)
--- NOTE | 2019-06-08 11:35 | NUR ---
CYBER OPS PLANNER NOTES RECEIVED A CALL FROM LAB AT 1125 REGARDING PATIENT APTT VALUE OF 106.9 PER PROTOCOL HEPARIN DRIP STOPPED ATT 1130 FOR ONE HOUR, THEN WILL DECREASE INFUSION BY 300 UNITS; FROM 1800 TO 1500
--- NOTE | 2019-06-08 12:40 | NUR ---
NEON PUMPER NOTES RESTARTED HEPARIN DRIP. WILL CONTINUE TO MONITOR PATIENT.
[2019-06-08] MEDS ORDERED: K PHOS NEUTRAL 250 MG TABLET PO ONE (13:30)
[2019-06-08 16:00] VITALS: BP 123/59
--- NOTE | 2019-06-08 18:58 | NUR ---
TENT FINISHER CLOSING NOTES PATIENT IN BED, ASLEEP. PATIENT ON ROOM AIR, BREATHING EVEN WITH NO SOB PRESENT AT THIS TIME. NO SIGNS OF PAIN SUCH FACIAL GRIMACING OR MOANING. TELE READING SR 70. IV TO RIGHT WRIST IN PLACE, INFUSING HEPARIN AT 1500 UNIT/KG IV. NO ACTIVE BLEEDING NOTED. ALL NEEDS ATTENDED TO THROUGHOUT THE DAY. SAFETY PRECAUTIONS IN PLACE; BED IN LOW POSITION AND LOCKED, RAILS UP X2, CALL LIGHT WITHIN REACH. WILL ENDORSE TO DIRECTOR OF SCOUT WORK NURSE.
[2019-06-08 20:00] VITALS: BP 111/61
[2019-06-08] MEDS: oxyCODONE/APAP (5/325 MG) 1 UDTAB TABLET PO PRN (20:25)
[2019-06-08] MEDS ORDERED: HYDROMORPHONE INJ 0.5 MG/0.5 ML SYRINGE IV ONE (21:30)
[2019-06-08] MEDS ORDERED: ATORVASTATIN 10 MG TABLET PO SCH (22:00)
[2019-06-08] MEDS ORDERED: MONTELUKAST SODIUM (10MG) 10 MG TABLET PO SCH (22:00)
[2019-06-08] MEDS ORDERED: HYDROMORPHONE 1 MG/1 ML DISP.SYRIN IV ONE (22:00)
[2019-06-09] MEDS: oxyCODONE/APAP (5/325 MG) 1 UDTAB TABLET PO PRN ×2 (02:58→09:07)
[2019-06-09] MEDS: diphenhydrAMINE HCL 50 MG/ML VIAL IV PRN ×2 (04:43→12:49)
--- NOTE | 2019-06-09 06:25 | NUR ---
MS RN NOTES AWAKE & RESPONSIVE. NOT IN ANY DISTRESS. NO SOB NOTED. DENIES ANY PAIN OR DISCOMFORT AT THIS TIME. WITH HEPARIN DRIP INFUSING WELL. MONITORED ACCORDINGLY. CALL LIGHT WITHIN REACH. BED IN LOWEST POSITION. SR UP X 2 FOR SAFETY. WILL ENDORSE TO NEXT SHIFT.
--- NOTE | 2019-06-09 07:10 | NUR ---
MS RN NOTES RECEIVED PATIENT IN BED, ASLEEP. AROUSABLE TO VERBAL AND TACTILE STIMULI. HOB ELEVATED. NO SOB. DENIES ANY C/O RUBA NOR DISCOMFORT AT THIS TIME. ON HEPARIN DTIP @ 1500UNITS ML/HR (30ML/HR) TO LEFT FA IV ACCESS WITHOUT S/S OF COMPLICATIONS NOR S/S OF BLEEDING. BED IN LOWEST POSITION, LOCKED. BED ALARM ON. CALL LIGHT WITHIN REACH. ABLE TO VERBALIZE NEEDS.
[2019-06-09 08:00] VITALS: BP 119/63
[2019-06-09 08:03] LABS: ALBUMIN 3.3 g/dL (3.4-5.0); BILIRUBIN,TOTAL 0.4 mg/dL (0.2-1.0); CALCIUM, SERUM 8.5 mg/dL (8.5-10.1); CREATININE 0.8 mg/dL (0.6-1.3); MAGNESIUM 1.9 mg/dL (1.8-2.4); POTASSIUM 3.8 mmol/L (3.5-5.1)
[2019-06-09 08:09] LABS: THYROID STIMULATING HORMONE 0.633 uIU/mL (0.358-3.74)
[2019-06-09] MEDS ORDERED: ISOSORBIDE MONONITRATE (30MG) 30 MG TAB.SR.24H PO SCH (09:00)
[2019-06-09] MEDS: DIGOXIN 0.125 MG TABLET PO SCH (09:06)
[2019-06-09] MEDS: GABAPENTIN 300 MG CAPSULE PO SCH ×2 (09:06→12:49)
[2019-06-09] MEDS: ASPIRIN 81 MG TAB.CHEW PO SCH (09:06)
[2019-06-09] MEDS: FOLIC ACID 1 MG TABLET PO SCH (09:06)
[2019-06-09] MEDS: PANTOPRAZOLE 40 MG TABLET.DR PO SCH (09:06)
[2019-06-09] MEDS: FERROUS SULFATE (325 MG) 325 MG/TAB TABLET PO SCH (09:06)
[2019-06-09] MEDS: DULOXETINE HCL 30 MG CAPSULE.DR PO SCH (09:06)
[2019-06-09] MEDS: DOCUSATE SODIUM 100 MG CAPSULE PO SCH (09:06)
[2019-06-09] MEDS: CARVEDILOL 6.25 MG TABLET PO SCH (09:08)
[2019-06-09 09:11] VITALS: BP 119/63
[2019-06-09] MEDS: FLUTICASONE/VILANTEROL 1 EACH BLST.W.DEV IH SCH (09:11)
[2019-06-09] MEDS: SOTALOL HCL 80 MG TABLET PO SCH (09:11)
[2019-06-09] MEDS ORDERED: DABI150C PO (10:05)
[2019-06-09 10:12] LABS: FERRITIN 276 ng/mL (8-388)
[2019-06-09 10:21] LABS: C-REACTIVE PROTEIN < 0.2 mg/dL (0.0-0.9)
[2019-06-09 10:30] LABS: BASOPHILS % (AUTO) 0.3 % (0.0-2.0); EOSINOPHILS % (AUTO) 0.4 % (0.0-6.0); HEMATOCRIT 36 % (39-51); HEMOGLOBIN 11.6 g/dL (13.5-17.5); LYMPHOCYTES # (AUTO) 1.5 /CMM (0.8-4.8); LYMPHOCYTES % (AUTO) 26.1 % (20.0-44.0); MEAN CORPUSCULAR HGB CONC 32 g/dl (31.0-36.0); MEAN CORPUSCULAR VOLUME 91 fL (80-96); MONOCYTES # (AUTO) 0.6 /CMM (0.1-1.30); MONOCYTES % (AUTO) 11.1 % (2.0-12.0); NEUTROPHILS # (AUTO) 3.5 /CMM (1.8-8.9); NEUTROPHILS % (AUTO) 62.1 % (43.0-81.0); PLATELET COUNT (AUTO) 159 /CMM (150-450); RED BLOOD CELL COUNT(AUTO) 3.97 MIL/uL (4.5-6.0); WHITE BLOOD COUNT (AUTO) 5.7 K/uL (4.3-11.0)
[2019-06-09] MEDS ORDERED: HYDROMORPHONE 1 MG/1 ML DISP.SYRIN IV ONE (10:30)
[2019-06-09] MEDS ORDERED: DABIGATRAN ETEXILATE MESYLATE 150 MG CAPSULE PO SCH (10:30)
--- NOTE | 2019-06-09 15:30 | NUR ---
MS RN NOTES ALERT AND ORIENTED X4. NO S/S OF RESPIRATORY DISTRESS. DENIES ANY C/O PAIN NOR DISCOMFORT AT THIS TIME. AMBULATORY WITH STEADY GAIT. S/P HEPARIN DRIP WITHOUT S/S OF BLEEDING. DISCHARGE INSTRUCTIONS AND EDUCATION PROVIDED WITH DISCHARGE PACKET GIVEN TO PATIENT. PER PATIENT, ALREADY HAS AN APPOINTMENT SCHEDULED WITH PCP. IV ACCESS REMOVED WITH CATHETER TIP INTACT WITH GAUZE DRESSING APPLIED. ALL BELONGINGS ACCOUNTED FOR. PATIENT LEFT IN STABLE CONDITION VIA PRIVATE CAR. IN NO APPARENT DISTRESS.
== END 2019-06-09 15:00 | disposition home or self-care (01) | DRG 47 ==
LOC: ER 15:23 → MED 17:43 → TELE 21:43 → MED 06-08 13:37
PROVIDERS: ADMIT Internal Medicine; ATTEND Internal Medicine
DX: G45.9 Transient cerebral ischemic attack, unspecified (principal); F11.20 Opioid dependence, uncomplicated; Q87.40 Marfan syndrome, unspecified; G62.9 Polyneuropathy, unspecified; I48.91 Unspecified atrial fibrillation; D64.9 Anemia, unspecified; E78.5 Hyperlipidemia, unspecified; F32.9 Major depressive disorder, single episode, unspecified; G89.4 Chronic pain syndrome; I10 Essential (primary) hypertension; Z79.82 Long term (current) use of aspirin; Z79.899 Other long term (current) drug therapy; Z86.718 Personal history of other venous thrombosis and embolism; Z86.711 Personal history of pulmonary embolism; Z86.73 Personal history of transient ischemic attack (TIA), and cerebral infarction without residual deficits; Z90.49 Acquired absence of other specified parts of digestive tract; Z87.11 Personal history of peptic ulcer disease; Z95.810 Presence of automatic (implantable) cardiac defibrillator; J45.909 Unspecified asthma, uncomplicated; Z95.828 Presence of other vascular implants and grafts
CPT/HCPCS: 36415; 70450-TC; 70496-TC; 70498-TC; 71045-TC; 80048-TC; 80053-TC; 80061-TC; 82728-TC; 83540-TC; 83615-TC; 83735-TC; 84100-TC; 84443-TC; 84484-TC; 85025-TC; 85730-TC; 86140-TC; 87081-TC; 97116-TC; 97530-TC; 97535-TC; G0378; J1170; J1200; J1644; J2930; J3490; J7050; Q9967

== ENCOUNTER 2019-07-26 17:03 | Inpatient (IN) | payer OTHER ==
[~2019-07-26] VITALS: Ht 190.5 cm; Wt 115.7 kg
[~2019-07-26 17:03] MED LIST changes: -APIX5TAB PO; +DABI150C PO; +FOLI0.4T2 PO; -FOLI20CA PO
--- NOTE | 2019-07-26 17:25 | NUR ---
code stroke called
--- NOTE | 2019-07-26 17:25 | NUR ---
ACTIVATED CODE STROKE
--- NOTE | 2019-07-26 17:27 | NUR ---
PER PT LAST KNOWN WELL TIME 40 MINS AGO
--- NOTE | 2019-07-26 17:27 | NUR ---
PT BROUGHT TO CT
[2019-07-26] MEDS ORDERED: ONDANSETRON HCL/PF 4 MG/2 ML VIAL IV ONE (17:30)
[2019-07-26] MEDS ORDERED: MORPHINE SULFATE INJ 2 MG/ML DISP.SYRIN IV ONE ×2 (17:30→19:30)
[2019-07-26] MEDS ORDERED: IV NS 0.9% 500 ML BAG IV ONE (17:30)
[2019-07-26] MEDS ORDERED: methylPREDNISolone SOD SUCC 125 MG/2ML VIAL IV ONE (17:30)
[2019-07-26] MEDS ORDERED: FAMOTIDINE/PF INJ 20 MG/2 ML VIAL IV ONE ×2 (17:30→17:32)
[2019-07-26] MEDS ORDERED: diphenhydrAMINE HCL 50 MG/ML VIAL IV ONE ×2 (17:30→19:30)
[2019-07-26] MEDS ORDERED: CT SWABBABLE VALVE TRANS SET 1 EA INFUS.SET MC ONE (17:31)
[2019-07-26] MEDS ORDERED: IV NS 0.9% 250 ML IV ONE (17:31)
[2019-07-26] MEDS ORDERED: IOHEXOL-350 100 ML VIAL IV ONE ×2 (17:31→19:03)
[2019-07-26] MEDS ORDERED: methylPREDNISolone SOD SUCC 125 MG/2ML VIAL ONE (17:32)
[2019-07-26] MEDS ORDERED: MORPHINE SULFATE INJ 4 MG/ML DISP.SYRIN ONE ×2 (17:32→19:24)
[2019-07-26] MEDS ORDERED: diphenhydrAMINE HCL 50 MG/ML VIAL ONE ×2 (17:32→19:24)
[2019-07-26] MEDS ORDERED: ONDANSETRON HCL/PF 4 MG/2 ML VIAL ONE (17:32)
--- NOTE | 2019-07-26 17:40 | NUR ---
MEDICATED PER ERMD ORDER, PT ERIK WELL.
--- NOTE | 2019-07-26 17:50 | NUR ---
PT BROUGHT BACK FROM CT @ 174
[2019-07-26 17:54] LABS: BASOPHILS % (AUTO) 0.4 % (0.0-2.0); EOSINOPHILS % (AUTO) 0.7 % (0.0-6.0); HEMATOCRIT 32 % (39-51); HEMOGLOBIN 10.4 g/dL (13.5-17.5); LYMPHOCYTES # (AUTO) 0.6 /CMM (0.8-4.8); LYMPHOCYTES % (AUTO) 10.8 % (20.0-44.0); MEAN CORPUSCULAR HGB CONC 33 g/dl (31.0-36.0); MEAN CORPUSCULAR VOLUME 89 fL (80-96); MONOCYTES # (AUTO) 0.5 /CMM (0.1-1.30); MONOCYTES % (AUTO) 7.9 % (2.0-12.0); NEUTROPHILS # (AUTO) 4.6 /CMM (1.8-8.9); NEUTROPHILS % (AUTO) 80.2 % (43.0-81.0); PLATELET COUNT (AUTO) 151 /CMM (150-450); RED BLOOD CELL COUNT(AUTO) 3.57 MIL/uL (4.5-6.0); WHITE BLOOD COUNT (AUTO) 5.7 K/uL (4.3-11.0)
[2019-07-26 17:58] LABS: CALCIUM, SERUM 8.8 mg/dL (8.5-10.1); CARBON DIOXIDE 27 mmol/L (21-32); CHLORIDE 109 mmol/L (98-107); CREATININE 0.7 mg/dL (0.6-1.3); GLUCOSE 87 mg/dL (74-106); POTASSIUM 3.7 mmol/L (3.5-5.1); SODIUM SERUM 144 mmol/L (136-145); UREA NITROGEN, BLOOD 11 mg/dL (7-18)
--- NOTE | 2019-07-26 18:05 | NUR ---
PT SITTING UP COMFORTABLY. PT STS CP 06/29 & ERIK WELL. PT STILL C/O LT ARM & LT LEG NUMBNESS. PT ABLE TO ALL EXTREMITIESS, NO ARM/LEG DRIFTING. DENIES SOB, DIZZINESS, GONZALES, VISUAL CHANGES AT THIS TIME.
[2019-07-26] MEDS ORDERED: APIX5TAB PO (18:16)
--- NOTE | 2019-07-26 19:05 | NUR ---
PT TO CT VIA [facility].
[2019-07-26] MEDS ORDERED: LEVO75TA7 PO (19:07)
--- NOTE | 2019-07-26 19:31 | NUR ---
PT BACK FROM CT. MEDICATED PER ERMD ORDER. PT ERIK WELL.
--- NOTE | 2019-07-26 19:54 | NUR ---
CALLED [facility] FOR REPORT
[2019-07-26 20:08] LABS: CHOLESTEROL 132 mg/dL (<200); HDL CHOLESTEROL 65 mg/dL (40-60); LDL 51 mg/dL (0-99); TRIGLYCERIDES 56 mg/dL (30-150)
--- NOTE | 2019-07-26 20:30 | NUR ---
CALLED [facility] FOR REPORT. PER TECH, [facility] EXPERIENCING IT PROBLEMS AT THIS TIME. REQUESTED FOR RESULTS TO BE FAXED
--- NOTE | 2019-07-26 20:57 | NUR ---
CALLED [facility] REGARDING PENDING CTA. SPOKE WILLIS, SHE SPOKE TO RADIOLOGIST AND IS CURRENTLY READING SCAN AT THIS TIME.
[2019-07-26] MEDS ORDERED: ATORVASTATIN 40 MG TABLET PO STA (21:21)
[2019-07-26] MEDS ORDERED: ASPIRIN 81 MG TAB.CHEW PO STA (21:21)
--- NOTE | 2019-07-26 21:22 | NUR ---
DR. CHOUDHURY ON THE PHONE WITH DR. RICKS, RADILOGIST
--- NOTE | 2019-07-26 21:38 | NUR ---
DR. CHOUDHURY SPEAKING TO [facility] REGARDING [facility].
--- NOTE | 2019-07-26 21:46 | NUR ---
REPORT GIVEN TO DIANA BOWMAN FOR JOSHUA.
--- NOTE | 2019-07-26 21:50 | NUR ---
RN NOTES: RECEIVED CALL FROM ER, ENDORSEMENT GIVEN BY SUYAPA/RN/ER, N/A 33 Y.O, MALE, CAME IN WITH LEFT SIDED NUMBNESS AND WEAKNESS, AND LEFT SIDED CHEST PAIN, CODE STROKE WAS NEGATIVE, PATIENT HAS AICD ON THE LEFT CHEST WALL, HE IS ON ELIQUIZ, HE WAS RECENTLY DISCHARGE FROM [facility] IN AJ G#18,HE RECEIVED TOTAL OF MORPHINE 8MG,ZOFRAN, SOLU MEDROL, PEPCID, LIPITOR AND ASPIRIN FROM ER.MED RECON DONE, 98-99% ON RA, TELE PATIENT, CT HEAD, CT CHEST, CXR ALL NEGATIVE FOR ABNORMALITIES, FULL CODE.
[2019-07-26] MEDS: ATORVASTATIN 40 MG TABLET PO SCH (22:00)
[2019-07-26 22:10] VITALS: BP 140/57
--- NOTE | 2019-07-26 22:10 | NUR ---
RN NOTES: ARRIVED IN MS-3W VIA GURNEY ACCOMPANIED BY 2 ER STAFF ON FLIGHT RADIO OFFICER, ST-[id number],HE CLAIMED HE IS STILL HAVING ON AND OFF PAIN. ORIENTED TO UNIT AND STAFF,COOPERATIVE, AA/OX4 ANSWER ALL QUESTION ASKED, NO SLURRED SPEECH NOTED, ABLE TO MOVE RUE AND LUE WITHIN RANGE, SLIGHT WEAKNESS NOTED ON THE LEFT UPPER AND LOWER EXTREMITIES. EXPLAINED TO HIM WE NEED TO DO BODY ASSESSMENT HE AGREED: 1)MULTIPLE SKIN DISCOLORATION AND NEEDLE PRICK IN THE RUE, LUE 2)RASH ON THE ANTERIOR AND POSTERIOR PART OF THE CHEST 3) AICD-LEFT CHEST WALL 4) MULTIPLE SKIN DISCOLORATION AND HEALING SCABS ON RLE 5)MULTIPLE SKIN DISCOLORATION AND OLD SCAB IN LUE, PATIENT CLAIMED HE HAD A FALL 2-3 DAYS AGO AT HOME.
[2019-07-26 22:30] VITALS: BP 140/57
--- NOTE | 2019-07-26 23:15 | NUR ---
RN NOTES: PATIENT COMPLAINED OF ITCHINESS AND HE IS NOT RELIEVED FROM THE BENADRYL HE RECEIVED FROM ER, HE ASK FOR THE NEXT DOSE OF HIS BENADRYL IF IT CAN BE GIVEN NOW.GIVEN PER PATIENT REQUEST.
[2019-07-26] MEDS: diphenhydrAMINE HCL 50 MG/ML VIAL IV PRN (23:18)
[2019-07-26] MEDS: BLOOD SUGAR DIAGNOSTIC 1 EACH STRIP IN SCH (23:26)
--- NOTE | 2019-07-26 23:27 | NUR ---
RN NOTES: LIPITOR ALREADY GIVEN IN THE ER. TO START DOSE TOMORROW.
[2019-07-27] MEDS: BLOOD SUGAR DIAGNOSTIC 1 EACH STRIP IN SCH ×8 (00:38→21:29)
--- NOTE | 2019-07-27 00:50 | NUR ---
RN NOTES: -BLOOD SUGAR CHECKED FOR 2200 FGARVY=375. -BLOOD SUGAR CHECKED FOR 0000 RESULT-112. -NO SLIDING SCALE, WILL CONTINUE TO MONITOR FOR SIGN OF HYPER AND HYPOGLYCEMIA.
[2019-07-27] MEDS: MORPHINE SULFATE INJ 4 MG/ML DISP.SYRIN IV PRN ×5 (01:06→20:06)
--- NOTE | 2019-07-27 01:11 | NUR ---
RN NOTES: COMPLAINED OF GENERALIZED PAIN, HE RATE IT /10, BP CHECKED-136/58 RR-18 HR-105, REQUEST FOR HIS PRN PAIN MEDICATION, GIVEN, NON PHARMACOLOGIC INTERVENTION RENDERED.
[2019-07-27] MEDS ORDERED: FLUTICASONE/SALMETEROL 1 DISK IH SCH (01:30)
[2019-07-27] MEDS ORDERED: IPRATROPIUM NEB FS 0.5 MG/2.5 ML AMPUL.NEB NEB SCH (01:38)
--- NOTE | 2019-07-27 05:55 | NUR ---
RN NOTES: AFTER MORNING CARE DONE AND BLOOD TEST CONE, BLOOD SUGAR-115, COMPLAINED OF GENERALIZED PAIN AND REQUEST FOR HIS PAIN MEDICATION, EXPLAINED TO HIM WILL TRY SOME NON PHARMACOLOGIC INTERVENTION, BP-122/68, HE REALLY WANT HIS PAIN MEDICATION, KEPT RESTED AND GIVEN. ON CLOSE WATCH.SPO2-98% WITH O2 AT 1-2L/MIN VIA NC.
[2019-07-27 06:00] VITALS: BP 122/68
--- NOTE | 2019-07-27 07:20 | NUR ---
RN NOTES: HE LOOKS MORE RELAX NOW, TELE MONITOR CONTINUE, SINUS RHYTHM-64 WITH PAC,KEPT ON COMFORTABLE POSITION,NEEDS ATTENDED, ENDORSED FOR CONTINUITY OF CARE, TO NOTIFY PMD OF SWALLOW EVALUATION, TO VERIFY DIGOXIN ORDER AND TO NOTIFY SCORE.
--- NOTE | 2019-07-27 07:39 | NUR ---
RECEIVED REPORT FROM [facility] SHIFT NURSE. PT AWAKE IN BED, ALERT AND ORIENTED X4, ON 02 VIA NC 2L/MIN, SATURATING WELL, RESPIRATIONS EVEN AND UNLABORED, NO SIGNS OF RESPIRATORY DISTRESS NOTED. SINUS TACH ON MONITOR, HR IV SITE ON LEFT JUGULAR INTACT, PATENT, WITH SALINE LOCK IN PLACE. INTRODUCED SELF TO PT, DISCUSSED PLAN OF CARE. BED IN LOW POSITION, LOCKED, CALL LIGHT LIGHT WITHIN REACH.
[2019-07-27] MEDS: PANTOPRAZOLE 40 MG TABLET.DR PO SCH (07:44)
[2019-07-27] MEDS: diphenhydrAMINE HCL 50 MG CAPSULE PO PRN ×2 (07:44→20:06)
[2019-07-27] MEDS: LEVOTHYROXINE SODIUM 75 MCG TABLET PO SCH (07:44)
[2019-07-27] MEDS: diphenhydrAMINE HCL 50 MG/ML VIAL IV PRN ×2 (07:50→14:05)
[2019-07-27 08:00] VITALS: BP 129/84
[2019-07-27] MEDS: DOCUSATE SODIUM 100 MG CAPSULE PO SCH ×2 (08:09→16:49)
[2019-07-27] MEDS: CARVEDILOL 6.25 MG TABLET PO SCH ×2 (08:09→16:50)
[2019-07-27] MEDS: DULOXETINE HCL 30 MG CAPSULE.DR PO SCH (08:09)
[2019-07-27] MEDS: GABAPENTIN 300 MG CAPSULE PO SCH ×3 (08:09→16:49)
[2019-07-27] MEDS: ISOSORBIDE MONONITRATE (30MG) 30 MG TAB.SR.24H PO SCH (08:10)
[2019-07-27] MEDS: ASPIRIN EC 81 MG TABLET.DR PO SCH (08:11)
[2019-07-27] MEDS: APIXABAN 5 MG TABLET PO SCH ×2 (08:12→16:51)
[2019-07-27] MEDS ORDERED: ASPIRIN EC 325 MG TABLET.DR PO SCH (09:00)
[2019-07-27] MEDS ORDERED: DIGOXIN 0.125 MG TABLET PO SCH (09:00)
[2019-07-27] MEDS ORDERED: ISOSORBIDE MONONITRATE 60 MG TAB.SR.24H PO SCH (09:00)
[2019-07-27] MEDS: FLUTICASONE/VILANTEROL 1 EACH BLST.W.DEV IH SCH (09:45)
[2019-07-27] MEDS: SOTALOL HCL 80 MG TABLET PO SCH ×2 (09:45→16:52)
[2019-07-27 11:11] LABS: BASOPHILS % (AUTO) 0.9 % (0.0-2.0); HEMATOCRIT 31 % (39-51); HEMOGLOBIN 10.5 g/dL (13.5-17.5); LYMPHOCYTES # (AUTO) 0.6 /CMM (0.8-4.8); LYMPHOCYTES % (AUTO) 9.7 % (20.0-44.0); MEAN CORPUSCULAR HGB CONC 34 g/dl (31.0-36.0); MEAN CORPUSCULAR VOLUME 88 fL (80-96); MONOCYTES # (AUTO) 0.4 /CMM (0.1-1.30); MONOCYTES % (AUTO) 6.2 % (2.0-12.0); NEUTROPHILS # (AUTO) 4.9 /CMM (1.8-8.9); NEUTROPHILS % (AUTO) 83.2 % (43.0-81.0); PLATELET COUNT (AUTO) 172 /CMM (150-450); RED BLOOD CELL COUNT(AUTO) 3.58 MIL/uL (4.5-6.0); WHITE BLOOD COUNT (AUTO) 5.8 K/uL (4.3-11.0)
[2019-07-27 11:46] LABS: ALBUMIN 3.3 g/dL (3.4-5.0); BILIRUBIN,TOTAL 0.4 mg/dL (0.2-1.0); CALCIUM, SERUM 8.9 mg/dL (8.5-10.1); CREATININE 0.7 mg/dL (0.6-1.3); POTASSIUM 3.6 mmol/L (3.5-5.1); TOTAL PROTEIN, SERUM 5.8 g/dL (6.4-8.2)
[2019-07-27 16:00] VITALS: BP 113/58
[2019-07-27 16:38] LABS: THYROID STIMULATING HORMONE 0.084 uIU/mL (0.358-3.74)
[2019-07-27 20:00] VITALS: BP 114/74
[2019-07-27] MEDS: ATORVASTATIN 40 MG TABLET PO SCH (20:06)
[2019-07-27] MEDS: MONTELUKAST SODIUM (10MG) 10 MG TABLET PO SCH (21:28)
--- NOTE | 2019-07-27 21:53 | NUR ---
/FRANTZ/LIZETH AT INITIAL ROUNDING AT 1930, RECEIVED PATIENT ON BED AWAKE, ALERT, ORIENTED, USING I PAD, COMFORTABLE, NO C/O PAIN, NO DISTRESS NOTED, FALL RISK RELATED NO MILD WEAKNESS OF LEFT LEG, FALL PRECAUTIONS IN PLACE, ENCOURAGED TO ASK FOR HELP WHEN WANTS TO GET OUT OF BED, VERBALIZED UNDERSTANDING, CALL LIGHT IN REACH, WILL MONITOR.
[2019-07-28] MEDS: MORPHINE SULFATE INJ 4 MG/ML DISP.SYRIN IV PRN ×5 (00:45→21:29)
[2019-07-28] MEDS: BLOOD SUGAR DIAGNOSTIC 1 EACH STRIP IN SCH ×9 (06:00→23:03)
[2019-07-28 07:11] LABS: BASOPHILS % (AUTO) 0.4 % (0.0-2.0); HEMATOCRIT 32 % (39-51); HEMOGLOBIN 10.7 g/dL (13.5-17.5); LYMPHOCYTES # (AUTO) 1.1 /CMM (0.8-4.8); LYMPHOCYTES % (AUTO) 25.5 % (20.0-44.0); MEAN CORPUSCULAR HGB CONC 33 g/dl (31.0-36.0); MEAN CORPUSCULAR VOLUME 89 fL (80-96); MONOCYTES # (AUTO) 0.4 /CMM (0.1-1.30); MONOCYTES % (AUTO) 10.3 % (2.0-12.0); NEUTROPHILS # (AUTO) 2.6 /CMM (1.8-8.9); NEUTROPHILS % (AUTO) 62.8 % (43.0-81.0); PLATELET COUNT (AUTO) 155 /CMM (150-450); RED BLOOD CELL COUNT(AUTO) 3.61 MIL/uL (4.5-6.0); WHITE BLOOD COUNT (AUTO) 4.2 K/uL (4.3-11.0)
--- NOTE | 2019-07-28 07:30 | NUR ---
MS/TELE/RN PATIENT IS DOZING INTERMITTENTLY, COMFORTABLE, NO SIGNS OF DISTRESS NOTED, CALL LIGHT IN REACH, ALL NEEDS ATTENDED AT THIS TIME, ENDORSED TO DAY SHIFT NURSE.
[2019-07-28 07:31] LABS: ALBUMIN 3.2 g/dL (3.4-5.0); BILIRUBIN,TOTAL 0.3 mg/dL (0.2-1.0); CALCIUM, SERUM 8.3 mg/dL (8.5-10.1); CREATININE 0.6 mg/dL (0.6-1.3); MAGNESIUM 1.6 mg/dL (1.8-2.4); PHOSPHORUS 4.1 mg/dL (2.5-4.9); POTASSIUM 3.6 mmol/L (3.5-5.1); TOTAL PROTEIN, SERUM 5.7 g/dL (6.4-8.2)
[2019-07-28 08:00] VITALS: BP 120/70
[2019-07-28] MEDS: DOCUSATE SODIUM 100 MG CAPSULE PO SCH ×2 (08:21→16:23)
[2019-07-28] MEDS: LEVOTHYROXINE SODIUM 75 MCG TABLET PO SCH (08:21)
[2019-07-28] MEDS: GABAPENTIN 300 MG CAPSULE PO SCH ×3 (08:22→16:24)
[2019-07-28] MEDS: PANTOPRAZOLE 40 MG TABLET.DR PO SCH (08:22)
[2019-07-28] MEDS: DULOXETINE HCL 30 MG CAPSULE.DR PO SCH (08:22)
[2019-07-28] MEDS: ASPIRIN EC 81 MG TABLET.DR PO SCH (08:22)
[2019-07-28] MEDS: CARVEDILOL 6.25 MG TABLET PO SCH ×2 (08:23→16:28)
[2019-07-28] MEDS: ISOSORBIDE MONONITRATE (30MG) 30 MG TAB.SR.24H PO SCH (08:23)
[2019-07-28] MEDS: APIXABAN 5 MG TABLET PO SCH ×2 (08:27→16:28)
[2019-07-28] MEDS: FLUTICASONE/VILANTEROL 1 EACH BLST.W.DEV IH SCH (09:00)
[2019-07-28] MEDS: SOTALOL HCL 80 MG TABLET PO SCH ×2 (09:21→16:27)
[2019-07-28] MEDS: diphenhydrAMINE HCL 50 MG CAPSULE PO PRN (09:37)
[2019-07-28] MEDS: Magnesium 1GM/D5W 100ML PREMIX 100 ML IV SCH ×2 (10:38→12:12)
[2019-07-28] MEDS: diphenhydrAMINE HCL 50 MG/ML VIAL IV PRN ×2 (16:23→23:03)
--- NOTE | 2019-07-28 18:43 | NUR ---
PATIENT RESTING ON BED AWAKE, A/O X3 , WITH NO C/O PAIN, BREATHING UNLABORED AND EVEN ON ROOM AIR TOLERATING WELL, MILD WEAKNESS ON L ARM AND LEFT LEG REMAINS SAME ,PATIENT EVALUATED BY OT TODAY . FALL AND SAFETY PRECAUTIONS IMPLEMENTED. PATIENT USES CALL LIGHT FOR ASSISTANCE. WILL ENDORSE TO NEXT SHIFT FOR JOSHUA.
--- NOTE | 2019-07-28 19:30 | NUR ---
MS RN OPENING NOTE PATIENT IN BED. A/OX4. TOLERATING ROOM AIR. RESPIRATIONS ARE EVEN AND UNLABORED. NO S/S SOB NOTED. C/O PAIN, INFORMED WILL ADMINISTER PAIN MEDICATION SOON VITALS HAVE BEEN TAKEN AND MEDICATION ADMINISTRATION TIME AVAILABLE. IN NO APPARENT DISTRESS. IV ACCESS IN LEFT JUGULAR #18 PATENT AND SALINE LOCKED. BED IS LOW AND LOCKED,HOB ELEVATED IN SEMI FOWLERS, SIDE RIALS UP X2. CALL LIGHT WITHIN REACH. WILL CONTINUE TO MONITOR.
[2019-07-28 20:00] VITALS: BP 104/64
[2019-07-28] MEDS: MONTELUKAST SODIUM (10MG) 10 MG TABLET PO SCH (21:26)
[2019-07-28] MEDS: ATORVASTATIN 40 MG TABLET PO SCH (21:27)
--- NOTE | 2019-07-28 21:30 | NUR ---
ms salinas note administered prn morphine 6mg for pain 10/30 in back and chest. pain is heavy and sharp. bp 122/72 hr 93. will continue to monitor. Addendum: 07/28/19 at 2217 by JAYE LAWSON RN waste witnessed by dayami salinas. waste placed in rx destroyer.
--- NOTE | 2019-07-28 22:45 | NUR ---
ms rn note called office communication professor MD. Dr. alvarado, to inform him that patient NIH score changed from 1 to 2. change in patient is left arm drift. MD telephone orders: no new orders at this time. order read back noted and carried out. also informed at patient has 2 different orders for accucheck. ACHS and Q6HR. telephone order: continue accucheck Q6HR. order read back noted and carried out.
--- NOTE | 2019-07-28 23:09 | NUR ---
ms rn note administered Benadryl 50mg for itchiness. will continue to monitor.
[2019-07-29] MEDS: MORPHINE SULFATE INJ 4 MG/ML DISP.SYRIN IV PRN ×4 (02:21→18:34)
--- NOTE | 2019-07-29 02:21 | NUR ---
MS RN NOTE ADMINISTERED PRN MORPHINE 6MG FOR PAIN 10/30. GENERALIZED PAIN IN BACK AND CHEST, SHARP AND ACHING. BP 116/70 HR 88. WILL CONTINUE TO MONITOR. YUSEF ORTIZ WITNESSED WASTE. WASTE MEDICATION PLACED IN RX DESTROYER.
[2019-07-29] MEDS: BLOOD SUGAR DIAGNOSTIC 1 EACH STRIP IN SCH ×4 (06:04→18:22)
--- NOTE | 2019-07-29 07:09 | NUR ---
MS RN CLOSING NOTE PATIENT IN BED. A/OX4. TOLERATING ROOM AIR. RESPIRATIONS ARE EVEN AND UNLABORED. NO SOB NOTED. MANAGED PAIN WITH MORPHINE. NO DISTRESS. IV ACCESS MAINTAINED IN LEFT JUGULAR #18 PATENT AND SALINE LOCKED. BED REMAINS LOW AND LOCKED,HOB ELEVATED IN SEMI FOWLERS, SIDE RIALS UP X2. CALL LIGHT WITHIN REACH. WILL ENDORSE TO NEXT SHIFT.
[2019-07-29 08:00] VITALS: BP 113/75
[2019-07-29] MEDS: ISOSORBIDE MONONITRATE (30MG) 30 MG TAB.SR.24H PO SCH (08:21)
[2019-07-29] MEDS: GABAPENTIN 300 MG CAPSULE PO SCH ×3 (08:21→16:09)
[2019-07-29] MEDS: diphenhydrAMINE HCL 50 MG/ML VIAL IV PRN ×2 (08:21→16:09)
[2019-07-29] MEDS: DULOXETINE HCL 30 MG CAPSULE.DR PO SCH (08:21)
[2019-07-29] MEDS: PANTOPRAZOLE 40 MG TABLET.DR PO SCH (08:22)
[2019-07-29] MEDS: LEVOTHYROXINE SODIUM 75 MCG TABLET PO SCH (08:22)
[2019-07-29] MEDS: DOCUSATE SODIUM 100 MG CAPSULE PO SCH ×2 (08:23→16:09)
[2019-07-29] MEDS: ASPIRIN EC 81 MG TABLET.DR PO SCH (08:23)
[2019-07-29] MEDS: CARVEDILOL 6.25 MG TABLET PO SCH ×2 (08:24→16:19)
[2019-07-29] MEDS: APIXABAN 5 MG TABLET PO SCH ×2 (08:37→16:10)
[2019-07-29] MEDS: FLUTICASONE/VILANTEROL 1 EACH BLST.W.DEV IH SCH (09:07)
[2019-07-29] MEDS: SOTALOL HCL 80 MG TABLET PO SCH ×2 (09:23→16:18)
--- NOTE | 2019-07-29 14:46 | NUR ---
Social service consult requested by MD for possible stroke. Per MD notes, pt is a 33-year-old male with a past medical history of hypertension, hyperlipidemia, Marfan syndrome, previous ID, previous PE status post IVC filter on Pradaxa, pulmonary hypertension, CHF, previous cardiac arrhythmia with sick sinus syndrome status post AICD placement, multiple ER visits in the last month for chest pain, chronic pain syndrome with reported opioid dependence, hypothyroidism, recently discharged from [facility] for gastric ulcers with GI bleeding, presenting to the emergency department for chest pain and left-sided weakness. The patient reports that approximately 2 hours prior to arrival, the patient developed mid substernal moderate sharp pressure-like chest pain radiating to his back. He does not endorse diaphoresis. He does report feeling lightheaded at the time. Approximately 30 minutes prior to arrival, the patient developed left-sided arm and leg weakness and numbness. The patient is able to move his extremities, but they are weaker than the right. The patient endorses severe sensory loss on the left as well. MATERIALS ASSOCIATE conducted chart review and met with the pt bedside. MATERIALS ASSOCIATE introduced self, explained the role of the SW and purpose of the call. Pt is alert and oriented x 4. Pt is pleasant. Pt reports he resides in [place] and was visiting friends in [place]. Pt states, he has good family support. Pt's emergency contact is his brother Kobe . Pt reports to have a history of stroke. Last stroke was in 2007. Pt is independent with his ADLs and IADLS. Pt denies SI/HI and visual/auditory hallucinations. Pt has a history of Depression and is prescribed Zoloft. Pt is complaint with his psychotropic medication. MATERIALS ASSOCIATE completed the PhQ-9 screening and pt' scored a 0, requiring no psychiatric evaluation. Pt states he has a ride home back to [place]. MATERIALS ASSOCIATE provided active listening, emotional support, validation of feelings and positive coping skills. Pt was provided with a brief stroke education and materials. MATERIALS ASSOCIATE updated MS3 DANIELA Kalani with pt's discharge plan. Crm Coordinator is available for support as needed.
[2019-07-29 15:22] LABS: CALCIUM, SERUM 8.4 mg/dL (8.5-10.1); CREATININE 0.6 mg/dL (0.6-1.3); MAGNESIUM 1.7 mg/dL (1.8-2.4); PHOSPHORUS 3.4 mg/dL (2.5-4.9); POTASSIUM 3.6 mmol/L (3.5-5.1)
[2019-07-29 15:29] LABS: BASOPHILS % (AUTO) 0.6 % (0.0-2.0); EOSINOPHILS % (AUTO) 1.6 % (0.0-6.0); HEMATOCRIT 31 % (39-51); HEMOGLOBIN 10.2 g/dL (13.5-17.5); LYMPHOCYTES # (AUTO) 0.8 /CMM (0.8-4.8); MEAN CORPUSCULAR HGB CONC 33 g/dl (31.0-36.0); MEAN CORPUSCULAR VOLUME 92 fL (80-96); MONOCYTES # (AUTO) 0.3 /CMM (0.1-1.30); MONOCYTES % (AUTO) 8.9 % (2.0-12.0); NEUTROPHILS # (AUTO) 2.6 /CMM (1.8-8.9); NEUTROPHILS % (AUTO) 67.9 % (43.0-81.0); PLATELET COUNT (AUTO) 133 /CMM (150-450); RED BLOOD CELL COUNT(AUTO) 3.41 MIL/uL (4.5-6.0); WHITE BLOOD COUNT (AUTO) 3.8 K/uL (4.3-11.0)
[2019-07-29 16:00] VITALS: BP 114/66
--- NOTE | 2019-07-29 19:15 | NUR ---
M/S RN NOTES PATIENT AWAKE IN BED, NO RESPIRATORY DISTRESS, NO C/O PAIN AT THIS TIME. SKIN WARM TO TOUCH, IV ACCESS SITE INTACT AND PATENT. PATIENT'S NEEDS ATTENDED, BED ON LOWEST LOCKED POSITION, CALL LIGHT WITHIN REACH. WILL ENDORSE DISCHARGE INSTRUCTIONS TO ONCOMING NURSE.
--- NOTE | 2019-07-29 19:30 | NUR ---
MS RN OPENING NOTE PATIENT IN BED. A/OX4. TOLERATING ROOM AIR. RESPIRATIONS ARE EVEN AND UNLABORED. NO S/S SOB NOTED. IN NO APPARENT DISTRESS. IV ACCESS IN LEFT JUGULAR #18 PATENT AND SALINE LOCKED. BED IS LOW AND LOCKED,HOB ELEVATED IN SEMI FOWLERS, SIDE RIALS UP X2. CALL LIGHT WITHIN REACH. WILL CONTINUE TO MONITOR.
[2019-07-29 20:00] VITALS: BP 118/61
--- NOTE | 2019-07-29 20:50 | NUR ---
ms rn radiation oncology note patient is in stable condition. able to ambulate steady. id band removed, iv removed, exit care given, documents signed and copies given, belongings list gone through with patient, pictures completed within 24 hrs, no new changes. patient set up transportation. taken down with auto bumper straightener.
== END 2019-07-29 20:55 | disposition home or self-care (01) | DRG 45 ==
LOC: ER 17:06 → TELE 20:38 → MED 07-27 16:56
PROVIDERS: ADMIT Hospitalist; ATTEND Nurse Practitioner Acute Care
DX: I63.9 Cerebral infarction, unspecified (principal); D68.59 Other primary thrombophilia; I27.20 Pulmonary hypertension, unspecified; G81.94 Hemiplegia, unspecified affecting left nondominant side; I48.91 Unspecified atrial fibrillation; I49.5 Sick sinus syndrome; I50.9 Heart failure, unspecified; Q87.40 Marfan syndrome, unspecified; I25.2 Old myocardial infarction; Z95.810 Presence of automatic (implantable) cardiac defibrillator; J45.909 Unspecified asthma, uncomplicated; Z86.711 Personal history of pulmonary embolism; Z86.73 Personal history of transient ischemic attack (TIA), and cerebral infarction without residual deficits; Z86.718 Personal history of other venous thrombosis and embolism; D63.1 Anemia in chronic kidney disease; F32.9 Major depressive disorder, single episode, unspecified; E03.9 Hypothyroidism, unspecified; Q24.9 Congenital malformation of heart, unspecified; Z79.01 Long term (current) use of anticoagulants; R07.9 Chest pain, unspecified; Z95.828 Presence of other vascular implants and grafts
CPT/HCPCS: 36415; 70450-TC; 70496-TC; 70498-TC; 70551-TC; 71045-TC; 80048-TC; 80053-TC; 80061-TC; 80162-TC; 82962-TC; 83735-TC; 83880; 84100-TC; 84439-TC; 84443-TC; 84484-TC; 85025-TC; 85730-TC; 87081-TC; 92521; 92611-TC; 97110-TC; 97116-TC; 97530-TC; A4623; G0378; J1200; J2270; J2405; J2930; J3475; J3490; J7040; J7050; Q0163; Q9967

== ENCOUNTER 2019-09-13 18:36 | Inpatient (IN) | payer OTHER ==
[~2019-09-13] VITALS: Ht 190.5 cm; Wt 99.8 kg
[2019-09-13 10:20] VITALS: BP 118/77
[~2019-09-13 18:36] MED LIST changes: +APIX5TAB PO; -DABI150C PO; -ECON15CR2 TP; +LEVO75TA7 PO
--- NOTE | 2019-09-13 18:50 | NUR ---
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 TO ER BED 9, HOOKED TO [employer] CAR, VSS, CHANGED TO HOSP GOWN, WARM BLANKET PROVIDED, PATIENT AAO x 4, BREATHING EVEN AND UNLABORED. AWAITING MD UP
--- NOTE | 2019-09-13 18:56 | NUR ---
seen by dr da silva,code stroke called
[2019-09-13] MEDS ORDERED: methylPREDNISolone SOD SUCC 125 MG/2ML VIAL IV ONE (19:00)
[2019-09-13] MEDS ORDERED: diphenhydrAMINE HCL 50 MG/ML VIAL IV ONE (19:00)
[2019-09-13] MEDS ORDERED: FAMOTIDINE/PF INJ 20 MG/2 ML VIAL IV ONE ×2 (19:00→19:12)
--- NOTE | 2019-09-13 19:00 | NUR ---
REFER TO CODE STROKE BLUE SHEET
--- NOTE | 2019-09-13 19:00 | NUR ---
CODE STROKE ACTIVATED
[2019-09-13] MEDS ORDERED: CT SWABBABLE VALVE TRANS SET 1 EA INFUS.SET MC ONE (19:02)
[2019-09-13] MEDS ORDERED: IV NS 0.9% 250 ML IV ONE (19:02)
[2019-09-13] MEDS ORDERED: IOHEXOL-350 100 ML VIAL IV ONE (19:02)
[2019-09-13] MEDS ORDERED: methylPREDNISolone SOD SUCC 125 MG/2ML VIAL ONE (19:11)
[2019-09-13] MEDS ORDERED: diphenhydrAMINE HCL 50 MG/ML VIAL ONE (19:11)
[2019-09-13 19:21] LABS: BASOPHILS % (AUTO) 0.6 % (0.0-2.0); EOSINOPHILS % (AUTO) 0.5 % (0.0-6.0); HEMATOCRIT 34 % (39-51); LYMPHOCYTES # (AUTO) 0.7 /CMM (0.8-4.8); LYMPHOCYTES % (AUTO) 9.9 % (20.0-44.0); MEAN CORPUSCULAR HGB CONC 32 g/dl (31.0-36.0); MEAN CORPUSCULAR VOLUME 86 fL (80-96); MONOCYTES # (AUTO) 0.7 /CMM (0.1-1.30); MONOCYTES % (AUTO) 9.5 % (2.0-12.0); NEUTROPHILS # (AUTO) 5.9 /CMM (1.8-8.9); NEUTROPHILS % (AUTO) 79.5 % (43.0-81.0); PLATELET COUNT (AUTO) 175 /CMM (150-450); RED BLOOD CELL COUNT(AUTO) 3.98 MIL/uL (4.5-6.0); WHITE BLOOD COUNT (AUTO) 7.5 K/uL (4.3-11.0)
--- NOTE | 2019-09-13 19:29 | NUR ---
PT RETURN FROM CT.
--- NOTE | 2019-09-13 19:30 | NUR ---
TELE NEURO SPEAKING WITH PATIENT
[2019-09-13 19:31] LABS: CALCIUM, SERUM 8.6 mg/dL (8.5-10.1); CARBON DIOXIDE 30 mmol/L (21-32); CHLORIDE 106 mmol/L (98-107); CREATININE 0.7 mg/dL (0.6-1.3); GLUCOSE 77 mg/dL (74-106); POTASSIUM 3.5 mmol/L (3.5-5.1); SODIUM SERUM 142 mmol/L (136-145); UREA NITROGEN, BLOOD 8 mg/dL (7-18)
--- NOTE | 2019-09-13 19:31 | NUR ---
REPORT GIVEN TO JCARLOS ORTIZ FOR JOSHUA
[2019-09-13 19:42] LABS: ALANINE AMINOTRANSFERASE 20 U/L (12-78); ALBUMIN 3.6 g/dL (3.4-5.0); ALKALINE PHOSPHATASE 72 U/L (46-116); ASPARTATE AMINOTRANSFERASE 12 U/L (15-37); BILIRUBIN,DIRECT 0.2 mg/dL (0.0-0.2); BILIRUBIN,TOTAL 0.5 mg/dL (0.2-1.0); TOTAL PROTEIN, SERUM 6.2 g/dL (6.4-8.2)
--- NOTE | 2019-09-13 20:38 | NUR ---
COVID RAPID SWAB DELIVERED TO MAIN LAB IN PERSON, SIGNED LOG SHEET
[2019-09-13] MEDS ORDERED: NITROGLYCERIN 0.4 MG/TAB BOTTLE SL PRN (21:30)
[2019-09-13] MEDS ORDERED: ACETAMINOPHEN 325 MG TABLET PO PRN (21:30)
[2019-09-13] MEDS ORDERED: FLUTICASONE/SALMETEROL 1 DISK IH SCH (21:30)
[2019-09-13] MEDS ORDERED: ONDANSETRON HCL/PF 4 MG/2 ML VIAL IVP PRN (21:30)
[2019-09-13] MEDS ORDERED: Z GUARD REMEDY 2 OZ OINT TP PRN (21:30)
--- NOTE | 2019-09-13 21:50 | NUR ---
report given to sandeep salinas for brisa pt will be transported to 3rd floor once covid swab result back
[2019-09-13] MEDS ORDERED: TRAMADOL HCL 50 MG TABLET PO PRN (22:00)
[2019-09-13 22:07] LABS: ALBUMIN 3.6 g/dL (3.4-5.0); BILIRUBIN,TOTAL 0.5 mg/dL (0.2-1.0); CALCIUM, SERUM 8.7 mg/dL (8.5-10.1); CREATININE 0.7 mg/dL (0.6-1.3); POTASSIUM 3.6 mmol/L (3.5-5.1); TOTAL PROTEIN, SERUM 6.1 g/dL (6.4-8.2)
--- NOTE | 2019-09-13 22:08 | NUR ---
given to claude salinas
[2019-09-13 22:09] LABS: THYROID STIMULATING HORMONE 0.056 uIU/mL (0.358-3.74)
--- NOTE | 2019-09-13 22:34 | NUR ---
PT TRANSPORTED TO 3RD FLOOR
[2019-09-13 22:35] VITALS: BP 118/77
--- NOTE | 2019-09-13 22:35 | NUR ---
RN NOTES: -AT 2208 RECEIVED REPORT FROM MARITA/RN/ER,PATIENT CAME IN WITH C/O LEFT SIDED WEAKNESS, ON THE LEFT ARM AND LEFT LEG WEAKNESS 30 MIN PRIOR TO ARRIVAL, AND HE ALSO HAVE CHEST PAIN.HIS LABS WAS OK NO INFECTION, TROPONIN WAS NEGATIVE AND COVID IS NEGATIVE, HE HAS ICD ON DERRICK, IV ON THE LEFT AJ G#18, PATENT.LAST ADMISSION JULY 2019,CT BRAIN W/O CONTRAST-NO ACUTE INTRACRANIAL HEMORRHAGE. -AT 2234 PATIENT ARRIVED IN HI-3W, ROOM 326-2, A/OX4, ORIENTED TO UNIT AND STAFF, SPO2-97% ON ROOM AIR, NON LABORED BREATHING, NO SOB, CLEAR BREATH SOUND, NO COUGHING NOTED, AFEBRILE. CONVERSANT, ABLE TO GIVE DETAILED AND DISCUSS REGARDING HIS PAST MEDICAL HISTORY AND PAST SURGERY HE UNDERGONE, ON TELE MONITOR SR RATE-80. AGREED FOR SKIN ASSESSMENT: 1)BLUISH/BLACK DISCOLORATION ON THE LEFT BIG TOE 2) RLE-SKIN DISCOLORATION 3)YUVAL SKIN DISCOLORATION 4) SAMIR SKIN DISCOLORATION 5) RED RASHES ON THE BACK 6)LEFT UPPER CHEST-AICD 7) LEFT AJ G#18
--- NOTE | 2019-09-13 23:30 | NUR ---
RN NOTES: -SWALLOW EVALUATION DONE PRIOR TO GIVING OF MEDICATION, PATIENT WAS ABLE TO SWALLOW THIN LIQUID WELL WITHOUT ANY DIFFICULTY, NO DROOLING , GAG IS PRESENT, NO SLURRING OF SPEECH AND NO FACIAL DEVIATION NOTED. -HE VERBALIZED HE HAS NO DIFFICULTY IN SWALLOWING. -DUE ORAL MDS GIVEN ORDERED,BALANCE WHEEL SCREW HOLE DRILLER AWARE.
[2019-09-13] MEDS: ATORVASTATIN 10 MG TABLET PO SCH (23:32)
[2019-09-13] MEDS: FERROUS SULFATE (325 MG) 325 MG/TAB TABLET PO SCH (23:32)
[2019-09-13] MEDS: PANTOPRAZOLE 40 MG TABLET.DR PO SCH (23:32)
[2019-09-13] MEDS: ASPIRIN 81 MG TAB.CHEW PO SCH (23:32)
[2019-09-13] MEDS: GABAPENTIN 300 MG CAPSULE PO SCH (23:32)
[2019-09-13] MEDS: MONTELUKAST SODIUM (10MG) 10 MG TABLET PO SCH (23:32)
[2019-09-13] MEDS: BLOOD SUGAR DIAGNOSTIC 1 EACH STRIP IN SCH (23:43)
[2019-09-13] MEDS ORDERED: SOTALOL HCL 80 MG TABLET ONE (23:52)
[2019-09-14] VITALS: BP 139/86
[2019-09-14] MEDS: SOTALOL HCL 80 MG TABLET PO SCH ×3 (00:01→17:49)
--- NOTE | 2019-09-14 00:01 | NUR ---
RN NOTES: SOTALOL FIRST DOSE GIVEN UPON DELIVERY BY ANTHROPOLOGICAL LINGUIST, ADV NOT AVAILABLE IN [facility] OFFICE, LICENSED LAND SURVEYOR DR. PURDY AWARE, OK TO START FIRST DOSE IN THE MORNING UPON AVAILABILITY OF TH MEDICINE.
--- NOTE | 2019-09-14 00:21 | NUR ---
RN NOTES: -HE REFUSED FOR 0000 BLOOD SUGAR CHECK. HE VERBALIZED "MY SUGAR IS OK" RN EXPLAINED TO HIM THAT WE NEED TO MONITOR, HE AGREED TO CHECK IT IN THE MORNING. -BLOOD SUGAR CHECKED AT 2343 RESULT-112, GIVEN SNACKS PER PATIENT REQUEST, WILL CONTINUE TO MONITOR FOR ANY SIGN OF HYPER/HYPOGLYCEMIA.
[2019-09-14 04:00] VITALS: BP_SYST 102; BP_DIAS 52; BP_DIAS 57
--- NOTE | 2019-09-14 04:05 | NUR ---
RN NOTES: ABLE TO SLEEP AND REST, KEPT CALL LIGHT WITHIN EASY REACH, ON CLOSE VISUAL CHECK Q 2HOURLY.
[2019-09-14] MEDS: BLOOD SUGAR DIAGNOSTIC 1 EACH STRIP IN SCH ×9 (06:05→23:04)
[2019-09-14 07:31] LABS: HEMATOCRIT 35 % (39-51); HEMOGLOBIN 11.2 g/dL (13.5-17.5); LYMPHOCYTES # (AUTO) 0.3 /CMM (0.8-4.8); LYMPHOCYTES % (AUTO) 7.3 % (20.0-44.0); MEAN CORPUSCULAR HGB CONC 32 g/dl (31.0-36.0); MEAN CORPUSCULAR VOLUME 85 fL (80-96); MONOCYTES # (AUTO) 0.1 /CMM (0.1-1.30); MONOCYTES % (AUTO) 2.2 % (2.0-12.0); NEUTROPHILS # (AUTO) 4.1 /CMM (1.8-8.9); NEUTROPHILS % (AUTO) 90.5 % (43.0-81.0); PLATELET COUNT (AUTO) 175 /CMM (150-450); RED BLOOD CELL COUNT(AUTO) 4.12 MIL/uL (4.5-6.0); WHITE BLOOD COUNT (AUTO) 4.5 K/uL (4.3-11.0)
[2019-09-14] MEDS: IPRATROPIUM NEB FS 0.5 MG/2.5 ML AMPUL.NEB NEB SCH ×3 (07:35→19:30)
--- NOTE | 2019-09-14 07:57 | NUR ---
RN NOTES: ASLEEP IN THE NIGHT, NO COMPLAINTS OF PAIN OR DISCOMFORT, KEEP ON CLOSE WATCH, LATEST SUGAR-124, FOR ST, PT AND OT EVAL, TO F/U WITH NEURO, VASCULAR AND SW CONSULT, ENDORSED FOR CONTINUITY OF CARE.
[2019-09-14 08:00] VITALS: BP 93/53
[2019-09-14 08:55] LABS: CALCIUM, SERUM 8.8 mg/dL (8.5-10.1); CREATININE 0.5 mg/dL (0.6-1.3); MAGNESIUM 1.8 mg/dL (1.8-2.4); PHOSPHORUS 2.5 mg/dL (2.5-4.9); POTASSIUM 3.9 mmol/L (3.5-5.1)
[2019-09-14] MEDS: ASPIRIN 81 MG TAB.CHEW PO SCH ×2 (09:00→09:56)
[2019-09-14] MEDS ORDERED: TIOTROPIUM BROMIDE 6 CAP/BOX CAP.W.DEV IH SCH (09:00)
[2019-09-14] MEDS ORDERED: ISOSORBIDE MONONITRATE 60 MG TAB.SR.24H PO SCH (09:00)
[2019-09-14] MEDS: CARVEDILOL 6.25 MG TABLET PO SCH ×2 (09:00→17:47)
[2019-09-14] MEDS: ISOSORBIDE MONONITRATE (30MG) 30 MG TAB.SR.24H PO SCH (09:55)
[2019-09-14] MEDS: PANTOPRAZOLE 40 MG TABLET.DR PO SCH ×2 (09:56→17:48)
[2019-09-14] MEDS: FERROUS SULFATE (325 MG) 325 MG/TAB TABLET PO SCH ×2 (09:57→23:12)
[2019-09-14] MEDS: FOLIC ACID 1 MG TABLET PO SCH (09:57)
[2019-09-14] MEDS: DULOXETINE HCL 30 MG CAPSULE.DR PO SCH (09:57)
[2019-09-14] MEDS: DOCUSATE SODIUM 100 MG CAPSULE PO SCH ×2 (09:58→17:48)
[2019-09-14] MEDS: GABAPENTIN 300 MG CAPSULE PO SCH ×3 (09:58→17:47)
[2019-09-14] MEDS: FLUTICASONE/VILANTEROL 1 EACH BLST.W.DEV IH SCH (10:08)
[2019-09-14] MEDS: LEVOTHYROXINE SODIUM 75 MCG TABLET PO SCH (10:19)
--- NOTE | 2019-09-14 11:54 | NUR ---
rn notes tramadol wasnt effective per patient, still having chest pain. patient vss, on telemonitor. patient is asking for morphine iv. Dr Sanford made aware.
[2019-09-14] MEDS ORDERED: LEVOFLOXACIN 750 MG /D5W 150ML 750 MG in PREMIX 1 EA IV SCH (12:30)
--- NOTE | 2019-09-14 12:30 | NUR ---
rn notes patient requested peanutbutter and jelly sandwich. patient stated that he is not allergic to peanuts. kitchen made aware that patient is not allergic to peanuts
[2019-09-14] MEDS ORDERED: MORPHINE SULFATE INJ 2 MG/ML DISP.SYRIN IV ONE (13:00)
[2019-09-14] MEDS: DIGOXIN 0.125 MG TABLET PO SCH (13:13)
[2019-09-14] MEDS: DOXYCYCLINE HYCLATE (100 MG) 100 MG TABLET PO SCH ×2 (13:26→21:53)
[2019-09-14] MEDS: CEFTRIAXONE 1 G in IV D5W 50 ML IV SCH (13:52)
--- NOTE | 2019-09-14 15:00 | NUR ---
urine collected. called lab for p/u
[2019-09-14] MEDS: HYDROCODONE/APAP 5/325MG 1 EACH TABLET PO PRN ×2 (15:13→21:55)
[2019-09-14 16:00] VITALS: BP 111/64
--- NOTE | 2019-09-14 18:56 | NUR ---
rn notes patient doesnt wana wear scd pumps at this time. per patient, he want it later at night. scd pumps endorsed to night rn
--- NOTE | 2019-09-14 19:30 | NUR ---
RN CLOSING NOTES PATIENT IN STABLE CONDITION. ALL NEEDS ATTENDED AND PROVIDED. ALL DUE MEDS GIVEN ORDERED. KEPT PATIENT SAFE AND COMFORTABLE. BED IN LOW/LOCKED POSITION. SIDERAILS UPX2. CALL LIGHT IN REACH. ENDORSED TO NIGHT RN FOR JOSHUA.
--- NOTE | 2019-09-14 19:31 | NUR ---
MS RN RECEIVE PT IN BED PATIENT A/O X 3, STABLE NOT IN DISTRESS. WILL CONTINUE TO MONITOR
[2019-09-14 20:00] VITALS: BP 108/62
[2019-09-14] MEDS: ATORVASTATIN 10 MG TABLET PO SCH (21:54)
[2019-09-14] MEDS: MONTELUKAST SODIUM (10MG) 10 MG TABLET PO SCH (21:54)
[2019-09-14] MEDS: diphenhydrAMINE HCL 50 MG CAPSULE PO PRN ×2 (21:54→22:50)
--- NOTE | 2019-09-14 22:30 | NUR ---
MS RN [facility] SPOKE TO RAJWINDER RELAYED PT REQUESTING IF HE COULD HAVE IV PUSH PAIN MEDICATION FOR BREAKTHROUGH PAIN AND WANTED TO CHANGE BENADRYL PO TO IV PER RAJWINDER "NO". EXPLAINED PT, PT VERBALIZED UNDERSTANDING.
--- NOTE | 2019-09-14 23:00 | NUR ---
PT HAD PM SNACKS SANDWICH AND 2 APPLE JUICE
[2019-09-15] MEDS: IPRATROPIUM NEB FS 0.5 MG/2.5 ML AMPUL.NEB NEB SCH ×3 (01:30→13:22)
--- NOTE | 2019-09-15 06:02 | NUR ---
MS RN NO SIGNIFICANT CHANGES, NO CHEST PAIN. NO SOB, NURSING CARE RENDERED, NO S/S OF DISTRESS, NEEDS ATTENDED AND ANTICIPATED, KEPT CLEAN, DRY AND COMFORTABLE. AM CARE RENDERED, MONITORED FOR PAIN, SAFETY MEASURES AT ALL TIMES. WILL ENDORSE NEXT SHIFT POC.
[2019-09-15] MEDS: BLOOD SUGAR DIAGNOSTIC 1 EACH STRIP IN SCH ×4 (06:15→12:08)
[2019-09-15 07:38] LABS: CALCIUM, SERUM 8.4 mg/dL (8.5-10.1); CREATININE 0.6 mg/dL (0.6-1.3); MAGNESIUM 1.8 mg/dL (1.8-2.4); PHOSPHORUS 3.6 mg/dL (2.5-4.9); POTASSIUM 3.4 mmol/L (3.5-5.1)
--- NOTE | 2019-09-15 07:42 | NUR ---
MS/RN OPENING NOTES Patient is resting in bed, A&O x 3. Denies pain or discomfort at this time. Breathing even and non-labored on RA, no SOB noted. No cardiac distress noted. IV access located on LAJ #18, patent and intact, and flushing well. No infection/bleeding/infiltration noted on site. Sensation from all peripheral extremities intact. Fall precautions maintained. Will continue to monitor patient for any changes in condition.
[2019-09-15 07:46] LABS: BASOPHILS % (AUTO) 0.2 % (0.0-2.0); EOSINOPHILS % (AUTO) 0.8 % (0.0-6.0); HEMATOCRIT 31 % (39-51); LYMPHOCYTES # (AUTO) 1.2 /CMM (0.8-4.8); LYMPHOCYTES % (AUTO) 23.7 % (20.0-44.0); MEAN CORPUSCULAR HGB CONC 32 g/dl (31.0-36.0); MEAN CORPUSCULAR VOLUME 86 fL (80-96); MONOCYTES # (AUTO) 0.5 /CMM (0.1-1.30); MONOCYTES % (AUTO) 10.1 % (2.0-12.0); NEUTROPHILS # (AUTO) 3.2 /CMM (1.8-8.9); NEUTROPHILS % (AUTO) 65.2 % (43.0-81.0); PLATELET COUNT (AUTO) 157 /CMM (150-450); RED BLOOD CELL COUNT(AUTO) 3.62 MIL/uL (4.5-6.0); WHITE BLOOD COUNT (AUTO) 4.9 K/uL (4.3-11.0)
[2019-09-15 08:00] VITALS: BP 104/62
[2019-09-15] MEDS: ASPIRIN 81 MG TAB.CHEW PO SCH (08:16)
[2019-09-15] MEDS: DOCUSATE SODIUM 100 MG CAPSULE PO SCH (08:16)
[2019-09-15] MEDS: LEVOTHYROXINE SODIUM 75 MCG TABLET PO SCH (08:16)
[2019-09-15] MEDS: DULOXETINE HCL 30 MG CAPSULE.DR PO SCH (08:16)
[2019-09-15] MEDS: GABAPENTIN 300 MG CAPSULE PO SCH ×2 (08:16→12:07)
[2019-09-15] MEDS: FOLIC ACID 1 MG TABLET PO SCH (08:16)
[2019-09-15] MEDS: DOXYCYCLINE HYCLATE (100 MG) 100 MG TABLET PO SCH (08:17)
[2019-09-15] MEDS: CARVEDILOL 6.25 MG TABLET PO SCH (08:20)
[2019-09-15] MEDS: ISOSORBIDE MONONITRATE (30MG) 30 MG TAB.SR.24H PO SCH (08:20)
[2019-09-15] MEDS: PANTOPRAZOLE 40 MG TABLET.DR PO SCH (08:27)
[2019-09-15] MEDS: SOTALOL HCL 80 MG TABLET PO SCH (08:29)
[2019-09-15] MEDS: FERROUS SULFATE (325 MG) 325 MG/TAB TABLET PO SCH (09:31)
[2019-09-15] MEDS: POTASSIUM CHLORIDE 20 MEQ TAB.PRT.SR PO SCH ×3 (09:31→12:07)
[2019-09-15] MEDS: FLUTICASONE/VILANTEROL 1 EACH BLST.W.DEV IH SCH (09:31)
[2019-09-15] MEDS: DIGOXIN 0.125 MG TABLET PO SCH (12:06)
[2019-09-15] MEDS: HYDROCODONE/APAP 5/325MG 1 EACH TABLET PO PRN (12:07)
[2019-09-15] MEDS: CEFTRIAXONE 1 G in IV D5W 50 ML IV SCH (12:09)
[2019-09-15 16:00] VITALS: BP 118/71
--- NOTE | 2019-09-15 16:55 | NUR ---
MS/BALLAST CLEANING MACHINE OPERATOR NOTES Patient picked up by secure transport (arranged by his medical insurance) at 1655. Patient remained stable, A&O x 4, no pain/discomfort reported upon discharge. Breathing even and non-labored on RA. No respiratory or cardiac distress noted. IV access on anterior jugular removed with catheter intact. No infiltration/bleeding/infection noted on site, applied dry clean dressing. No generalized body weakness noted, patient was able to ambulate on his own. Sensation from all peripheral extremities intact. Explained all discharge instructions to patient, patient verbalized understanding and express satisfaction in care throughout hospital stay. Patient left facility safely with hospitalization documents and belongings. Addendum: 09/15/19 at 1755 by GERONIMO ERWIN RN In addition to above, photos of skin were taken and placed in the chart. Addendum: 09/15/19 at 1926 by GERONIMO ERWIN RN CORRECTION: PHOTOS TAKEN, BUT WAS NOT ABLE TO PRINT BECAUSE HOSPITAL RAN OUT OF INK. PHOTOS ARE SAVED IN THE 8GB MEMORY CARD.
== END 2019-09-15 17:00 | disposition home or self-care (01) | DRG 47 ==
LOC: ER 18:42 → TELE 20:57 → MED 09-14 11:14
PROVIDERS: ADMIT Nurse Practitioner Acute Care
DX: G45.9 Transient cerebral ischemic attack, unspecified (principal); J18.9 Pneumonia, unspecified organism; E61.1 Iron deficiency; D64.9 Anemia, unspecified; F11.20 Opioid dependence, uncomplicated; G89.4 Chronic pain syndrome; G62.9 Polyneuropathy, unspecified; F32.9 Major depressive disorder, single episode, unspecified; I10 Essential (primary) hypertension; J45.909 Unspecified asthma, uncomplicated; Z87.11 Personal history of peptic ulcer disease; Z86.718 Personal history of other venous thrombosis and embolism; Z86.711 Personal history of pulmonary embolism; Z79.899 Other long term (current) drug therapy; Z79.01 Long term (current) use of anticoagulants; Z79.82 Long term (current) use of aspirin; Z95.0 Presence of cardiac pacemaker; I48.91 Unspecified atrial fibrillation; Q87.40 Marfan syndrome, unspecified; I25.2 Old myocardial infarction; Z76.5 Malingerer [conscious simulation]; R29.702 NIHSS score 2; R40.2362 Coma scale, best motor response, obeys commands, at arrival to emergency department; R40.2142 Coma scale, eyes open, spontaneous, at arrival to emergency department; R40.2252 Coma scale, best verbal response, oriented, at arrival to emergency department; R53.1 Weakness
CPT/HCPCS: 36415; 70450-TC; 70496-TC; 70498-TC; 71045-TC; 80048-TC; 80053-TC; 80061-TC; 80076-TC; 80162-TC; 80305; 82962-TC; 83735-TC; 83880; 84100-TC; 84443-TC; 84484-TC; 85025-TC; 85652-TC; 85730-TC; 87081-TC; 93307-TC; 94799-TC; 97116-TC; 97530-TC; A4216; G0378; J0696; J1200; J1956; J2270; J2930; J3490; J7050; J7060; Q0163; Q9967

== ENCOUNTER 2020-01-11 17:10 | Emergency (ER) | payer OTHER ==
[~2020-01-11] VITALS: Ht 190.5 cm; Wt 99.8 kg
--- NOTE | 2020-01-11 17:15 | NUR ---
BIB SELF C/O CHEST PAIN 6/10 AND WEAKNESS ON THE L SIDE X 30MINS. vs checked. stable. seen by
--- NOTE | 2020-01-11 17:26 | NUR ---
PT SEEN AND EXAMINED BY .
[2020-01-11] MEDS ORDERED: FAMOTIDINE/PF INJ 20 MG/2 ML VIAL IV ONE ×2 (17:30→17:57)
[2020-01-11] MEDS ORDERED: MORPHINE SULFATE INJ 2 MG/ML DISP.SYRIN IV ONE (17:30)
[2020-01-11] MEDS ORDERED: ONDANSETRON HCL/PF 4 MG/2 ML VIAL IVP ONE (17:30)
[2020-01-11] MEDS ORDERED: IV NS 0.9% 1,000 ML BAG IV ONE (17:30)
[2020-01-11] MEDS ORDERED: diphenhydrAMINE HCL 50 MG/ML VIAL IV ONE ×2 (17:30→19:30)
[2020-01-11] MEDS ORDERED: methylPREDNISolone SOD SUCC 125 MG/2ML VIAL IV ONE (17:30)
--- NOTE | 2020-01-11 17:50 | NUR ---
IV LINE ESTABLISHED BY . BLOOD DRAWN AND SENT TO LAB.
[2020-01-11] MEDS ORDERED: ONDANSETRON HCL/PF 4 MG/2 ML VIAL ONE (17:56)
[2020-01-11] MEDS ORDERED: diphenhydrAMINE HCL 50 MG/ML VIAL ONE ×2 (17:56→19:23)
[2020-01-11] MEDS ORDERED: methylPREDNISolone SOD SUCC 125 MG/2ML VIAL ONE (17:56)
[2020-01-11] MEDS ORDERED: MORPHINE SULFATE INJ 4 MG/ML DISP.SYRIN ONE ×2 (17:57→19:33)
[2020-01-11 18:01] LABS: BASOPHILS % (AUTO) 0.1 % (0.0-2.0); HEMATOCRIT 37 % (39-51); LYMPHOCYTES # (AUTO) 0.2 /CMM (0.8-4.8); LYMPHOCYTES % (AUTO) 3.9 % (20.0-44.0); MEAN CORPUSCULAR HGB CONC 32 g/dl (31.0-36.0); MEAN CORPUSCULAR VOLUME 87 fL (80-96); MONOCYTES % (AUTO) 0.5 % (2.0-12.0); NEUTROPHILS # (AUTO) 4.6 /CMM (1.8-8.9); NEUTROPHILS % (AUTO) 95.5 % (43.0-81.0); PLATELET COUNT (AUTO) 229 /CMM (150-450); RED BLOOD CELL COUNT(AUTO) 4.29 MIL/uL (4.5-6.0); WHITE BLOOD COUNT (AUTO) 4.8 K/uL (4.3-11.0)
[2020-01-11 18:41] LABS: CALCIUM, SERUM 9.6 mg/dL (8.5-10.1); CARBON DIOXIDE 25 mmol/L (21-32); CHLORIDE 102 mmol/L (98-107); CREATININE 0.9 mg/dL (0.6-1.3); GLUCOSE 177 mg/dL (74-106); POTASSIUM 3.9 mmol/L (3.5-5.1); SODIUM SERUM 140 mmol/L (136-145); UREA NITROGEN, BLOOD 15 mg/dL (7-18)
[2020-01-11] MEDS ORDERED: IV NS 0.9% 250 ML IV ONE (19:03)
[2020-01-11] MEDS ORDERED: CT SWABBABLE VALVE TRANS SET 1 EA INFUS.SET MC ONE (19:03)
[2020-01-11] MEDS ORDERED: IOHEXOL-350 100 ML VIAL IV ONE (19:03)
--- NOTE | 2020-01-11 19:28 | NUR ---
Returned from Ct
[2020-01-11] MEDS ORDERED: MORPHINE SULFATE INJ 10 MG/ML DISP.SYRIN IV ONE (19:30)
--- NOTE | 2020-01-11 20:26 | NUR ---
IV removed. Catheter intact and site benign. Pressure and 4x4 applied to site. No bleeding noted.
[2020-01-11 20:39] VITALS: BP 126/72
--- NOTE | 2020-01-11 20:39 | NUR ---
Patient discharged to home in stable condition. Written and verbal after care instructions given. Patient verbalizes understanding of instruction.
== END 2020-01-11 20:39 | disposition home or self-care (01) ==
LOC: ER 17:17
DX: S40.022A Contusion of left upper arm, initial encounter (principal); S40.021A Contusion of right upper arm, initial encounter; R07.89 Other chest pain; R00.0 Tachycardia, unspecified; Q87.40 Marfan syndrome, unspecified; I10 Essential (primary) hypertension; I25.2 Old myocardial infarction; I48.91 Unspecified atrial fibrillation; J45.909 Unspecified asthma, uncomplicated; Z76.5 Malingerer [conscious simulation]; Z86.73 Personal history of transient ischemic attack (TIA), and cerebral infarction without residual deficits; Z90.49 Acquired absence of other specified parts of digestive tract; Z90.89 Acquired absence of other organs; Z98.890 Other specified postprocedural states; Z91.018 Allergy to other foods; Z88.6 Allergy status to analgesic agent; Z88.8 Allergy status to other drugs, medicaments and biological substances; Z91.040 Latex allergy status; Z60.2 Problems related to living alone; Z79.82 Long term (current) use of aspirin; Z79.899 Other long term (current) drug therapy; X58.XXXA Exposure to other specified factors, initial encounter; Y93.89 Activity, other specified; Y92.89 Other specified places as the place of occurrence of the external cause; Y99.8 Other external cause status
CPT/HCPCS: 36415; 71275; 80048; 84484; 85025; 85730; 93005; 96361; 96374; 96375; 96376; 99285; J1200 ×2; J2270 ×2; J2405; J2930; J3490; J7030; J7050; Q9967